=== PATIENT | male | born 1980 | race Caucasian/White ===

== ENCOUNTER 2018-04-17 10:39 | Observation (INO) | payer BC, OTHER ==
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
--- OUTSIDE RECORDS SUMMARY | 2018-04-17 10:42 | XMS REPORT | Continuity of Care Document ---
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/30/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 [facility] Oppositional Resolved Problem 06/30/2016 defiant behavior [facility] 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/30/2016 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[facility] disorder UTI (<span Resolved Problem 06/30/2016 ID="[id number]" [facility] >Confirmed</span >) Autism Active Problem 06/30/2016 [facility] Diverticula, Active Problem 06/30/2016 bladder [facility] LOW BACK PAIN Active [facility] Medications Medication Details Route Status Patient Ordering Order Source Instructions Provider Date Meperidine 12.5 mg, Route: Inactive IVP, Q30Min, 2015 [facility] Dosing Weight 105.568, kg, PRN Other -See Comment, For shivering, Start date: 06/27/16 10:12:00 CDT, Duration: 2 doses or times, Stop date: Limited # of times Ondansetron 4 mg, Route: Inactive 06/[facility] IVP, ONCE, 2015 [facility] Dosing Weight 105.568, kg, PRN Nausea & Vomiting, Start date: 06/27/16 10:12:00 CDT Flumazenil 0.2 mg, Route: Inactive [facility] IVP, PRN, Dosing 2015 [facility] Weight 105.568, kg, PRN Benzodiazepine Reversal, Initial dose, Start date: 06/27/16 10:12:00 CDT, Duration: 30 day, Stop date: 07/27/16 10:11:00 CDT Fentanyl 50 microgram, Inactive Route: IVP, 2015 [facility] Q5Min, Dosing Weight 105.568, kg, PRN Pain Score 7-10, Start date: 06/27/16 10:12:00 CDT, Duration: 2 doses or times, Stop date: Limited # of times Naloxone 0.4 mg, Route: Inactive IVP, Q2MIN, 2015 [facility] Dosing Weight 105.568, kg, PRN Narcotic Reversal, Start date: 06/27/16 10:12:00 CDT, Duration: 8 doses or times, Stop date: Limited # of times Hydromorphone 0.5 mg, Route: Inactive IVP, Q5Min, 2015 [facility] Dosing Weight 105.568, kg, PRN Pain Score 7-10, Start date: 06/27/16 10:12:00 CDT, Duration: 4 doses or times, Stop date: Limited # of times Oxycodone 10 mg, Route: Inactive PO, Drug form: 2015 [facility] TAB, Q4H, Dosing Weight 105.568, kg, PRN Pain Score 7-10, Start date: 06/27/16 10:12:00 CDT, Duration: 30 day, Stop date: 07/27/16 10:11:00 CDT Acetaminophen 1,000 mg, Route: Inactive PO, Drug form: 2015 [facility] TAB, ONCE, Dosing Weight 105.568, kg, PRN Pain Score 1-3, Start date: 06/27/16 10:12:00 CDT, Duration: 1 doses or times, Stop date: Limited # of times Cranberry oral 0 Refill(s) Active tablet 2015 [facility] Clonidine 0.2 mg=1 tab, Active Hydrochloride PO, BID, 0 2015 [facility] 0.2 MG Oral Refill(s) Tablet Caltrate 600 + 1 tab, PO, BID, Active D 0 Refill(s) 2015 [facility] risperiDONE 2 2 mg=1 tab, PO, Active mg oral tablet BID, 0 Refill(s) 2015 [facility] benztropine 1 1 mg=1 tab, PO, Active mg oral tablet BID, 0 Refill(s) 2015 [facility] tamsulosin 0.4 0.4 mg=1 cap, Active mg oral capsule PO, Daily, 0 2015 [facility] Refill(s) Divalproex 500 mg=1 tab, Active Sodium 500 MG PO, TID, 0 2015 [facility] Enteric Coated Refill(s) Tablet [Depakote] baclofen 10 mg 10 mg=1 tab, PO, Active oral tablet TID, 0 Refill(s) 2015 [facility] clindamycin 150 150 mg=1 cap, Active mg oral capsule PO, Q6H, 0 2015 [facility] Refill(s) Pyridium 100 mg 100 mg=1 tab, Active oral tablet PO, TID, 2014 [facility] Dysuria, # 6 tab, 0 Refill(s) Ciprofloxacin 500 mg=1 tab, Active 500 MG Oral PO, Q12H, # 14 2014 [facility] Tablet [Cipro] tab, 0 Refill(s) Cipro 500 mg, Route: Inactive PO, ONCE, Dosing 2014 [facility] Weight 79.091, kg, Priority: STAT, Start date: 11/11/14 19:52:00, Stop date: 11/11/14 19:52:00 Allergies, Adverse Reactions, Alerts Substance Category Reaction Severity Reaction Status Date Comments Source type Reported NKDA Assertion Drug Active allergy [facility] codeine Assertion Drug Active allergy [facility] Immunizations Immunization Date Site Status Last Comments Source Given Updated tetanus-diphther Right completed Jimmy [facility] ia toxoids 2 Deltoid Results Order Results Value Reference Date Interpretation Comments Source Name Range Spine Spine lumbar Patient Name: OTTO VIGIL 06/27 - lumbar wo wo contrast /2015 - [facility] contrast MRI : 1980; Age: 35 years y/o Male MRI MR: [id number] Read by: Flako Meredith MD Dictated Date/time: 06/27/16 10:55 Electronically Signed by: Flako Meredith MD 06/27/16 11:12 FINAL REPORT Study: Spine lumbar wo contrast MRI 06/27/2016 9:15 AM CDT Ordering Physician: Loy Tran MD Clinical Indication: M54.5 LOW BACK PAIN; UNDER ANESTHESIA Comparison: None TECHNIQUE: Multiplanar T1, T2, STIR weighted noncontrast MRI of the lumbar spine is performed on the 1.5 Jessica magnet. FINDINGS: ALIGNMENT AND GENERAL ASSESSMENT: There is normal alignment of the lumbar spine. The bone marrow is normal for the patient's age. There is no acute compression fracture. The anterior and posterior paraspinal soft tissues are normal. The conus medullaris ends at the T12- L1 level. For the sake of nomenclature, five lumbar vertebrae are assumed for the purpose of this dictation. T12-L1: No acute disc herniation, significant spinal or foraminal stenosis. Mild facet arthrosis. L1-L2: No acute disc herniation, significant spinal or foraminal stenosis. Mild facet arthrosis. L2-L3: Mild diffuse disc bulge with superimposed prominent right foraminal disc protrusion encroaching on the neural foramen. No significant spinal stenosis. Mild to moderate facet arthrosis. Please correlate with neurologic symptoms. L3-L4: Prominent right foraminal disc protrusion is present moderately encroaching on the neural foramen. No significant spinal stenosis detected. Moderate facet arthrosis. Please correlate with neurologic symptoms. L4-L5: Mild diffuse disc bulge and moderate facet arthrosis results in mild spinal stenosis. No significant foraminal stenosis is detected. Please correlate with neurologic symptoms. L5-S1: No acute disc herniation or significant spinal stenosis. Moderate left foraminal stenosis from asymmetric lateral disc bulge and marked facet arthrosis.. Please correlate with neurologic symptoms. IMPRESSION: 1. Multilevel degenerative disc disease and facet arthrosis, most noticeable at L2-L3, L3-L4, L4-L5 and L5/S1 as detailed above. Please correlate with neurologic symptoms. 2. No acute compression fracture or pathologic subluxation detected. SL: [id number] URINE AND UA 1.0 EU/dL 0.1 - 1.0 11/12 [facility] Urobilinogen URINE AND UA Nitrite Positive Negative 11/12 [facility] *ABN* (11/11/14 7:35 PM) URINE AND UA Leuk Est Moderate Negative 11/12 [facility] *ABN* (11/11/14 7:35 PM) URINE AND UA pH 6.0 5.0 - 8.0 11/12 [facility] URINE AND UA Protein Trace Negative 11/12 [facility] *ABN* (11/11/14 7:35 PM) URINE AND UA Glucose Negative Negative 11/12 [facility] (11/11/14 7:35 PM) URINE AND UA Spec Grav 1.025 <=1.030 11/12 [facility] URINE AND UA Ketones Negative Negative 11/12 [facility] *NA* (11/11/14 7:35 PM) URINE AND UA Bili Negative Negative 11/12 [facility] *NA* (11/11/14 7:35 PM) URINE AND UA Blood Trace Negative 11/12 [facility] *ABN* (11/11/14 7:35 PM) URINE AND UA Color Yellow Yellow 11/12 [facility] *NA* (11/11/14 7:35 PM) URINE AND UA Turbidity Slight Cloudy Clear 11/12 (11/11/14 7:35 PM) URINE AND UA Bacteria Moderate None Seen 11/12 [facility] /HPF /HPF [facility] URINE AND UA WBC 51-100 None Seen 11/12 STOOL /HPF /HPF /2014 [facility] URINE AND UA RBC 3-5 /HPF 0 - 2 11/12 [facility] URINE AND Micro? Performed 11/12 [facility] (11/11/14 7:35 PM) URINE AND UA Sq Epi Few /LPF Few /LPF 11/12 [facility] Vital Signs Vital Sign Value Date Comments Source Respitory Rate 12 06/27/2016 [facility] Systolic (mm Hg) 140 06/27/2016 [facility] Diastolic (mm Hg) 89 06/27/2016 [facility] Respitory Rate 13 06/27/2016 [facility] Systolic (mm Hg) 151 06/27/2016 [facility] Diastolic (mm Hg) 84 06/27/2016 [facility] Systolic (mm Hg) 144 06/27/2016 [facility] Diastolic (mm Hg) 99 06/27/2016 [facility] Respitory Rate 14 06/27/2016 [facility] Heart Rate 61 06/27/2016 [facility] Temperature Oral (F) 98.1 F 06/27/2016 [facility] Height 180.34 cm 06/27/2016 [facility] BMI Calculated 32.46 06/27/2016 [facility] Weight 105.568 06/27/2016 [facility] Systolic (mm Hg) 131 11/12/2014 [facility] Respitory Rate 16 11/12/2014 [facility] Temperature Oral (F) 98.9 F 11/12/2014 [facility] Diastolic (mm Hg) 81 11/12/2014 [facility] Heart Rate 81 11/12/2014 [facility] Temperature Oral (F) 98.4 F 11/12/2014 [facility] Weight 79.091 11/12/2014 [facility] BMI Calculated 24.32 11/12/2014 [facility] Heart Rate 82 11/12/2014 [facility] Respitory Rate 18 11/12/2014 [facility] Diastolic (mm Hg) 83 11/12/2014 [facility] Systolic (mm Hg) 134 11/12/2014 [facility] Height 180.34 cm 11/12/2014 [facility] Respitory Rate 18 11/12/2014 [facility] Heart Rate 84 11/12/2014 [facility] Diastolic (mm Hg) 83 11/12/2014 [facility] Temperature Oral (F) 97.8 F 11/12/2014 [facility] Systolic (mm Hg) 134 11/12/2014 [facility] BMI Calculated 24.32 11/12/2014 [facility] Weight 79.091 11/12/2014 [facility] Height 180.34 cm 11/12/2014 [facility] Encounters Location Location Encounter Encounter Reason Attending ADM DC Status Source Details Type Number For Provider Date Date Visit [facility] [id number] Walod Romano 11/12 11/12 [facility] Emergency /[address] [facility] [id number] Loy 06/27 [facility] Procedures Procedure Code Date Perfomer Comments Source Operation [id number] [facility]
--- OUTSIDE RECORDS SUMMARY | 2018-04-17 10:42 | XMS REPORT | Summary of Care ---
:1980 Author Encounter ILAN Alexandre(FREDY) [id number] Date(s): 11/11/14 - 11/11/14 [facility] [address] Discharge Diagnosis: Urinary tract infection Discharge Disposition: Home Physician Attending: Waldo Romano MD Reason for Visit UNINARY PROBLEMS Vital Signs Most recent to oldest [Reference 1 2 3 Range]: Height 180.34 cm 180.34 cm (11/11/14 6:42 PM) (11/11/14 6:37 PM) Temperature Oral [96.4-99.1 DegF] 98.9 DegF 98.4 DegF 97.8 DegF (11/11/14 8:00 PM) (11/11/14 6:42 PM) (11/11/14 6:37 PM) Systolic Blood Pressure [90-140 131 mmHg 134 mmHg 134 mmHg mmHg] (11/11/14 8:00 PM) (11/11/14 6:42 PM) (11/11/14 6:37 PM) Diastolic Blood Pressure [60-90 81 mmHg 83 mmHg 83 mmHg mmHg] (11/11/14 8:00 PM) (11/11/14 6:42 PM) (11/11/14 6:37 PM) Respiratory Rate [14-20 BRMIN] 16 BRMIN 18 BRMIN 18 BRMIN (11/11/14 8:00 PM) (11/11/14 6:42 PM) (11/11/14 6:37 PM) Peripheral Pulse Rate [60-100 bpm] 81 bpm 82 bpm 84 bpm (11/11/14 8:00 PM) (11/11/14 6:42 PM) (11/11/14 6:37 PM) Weight 79.091 kg 79.091 kg (11/11/14 6:42 PM) (11/11/14 6:37 PM) Body Mass Index 24.32 m2 24.32 m2 (11/11/14 6:42 PM) (11/11/14 6:37 PM) Problem List Condition Effective Dates Status Health Status Informant ADHD (attention deficit Resolved hyperactivity disorder)(Confirmed) Constipation(Confirmed) Resolved Explosive personality Resolved disorder(Confirmed) Mental retardation(Confirmed) Resolved Oppositional defiant Resolved behavior(Confirmed) Pervasive 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Resolved disorder(Confirmed) UTI (urinary tract Resolved infection)(Confirmed) Allergies, Adverse Reactions, Alerts Substance Reaction Severity Status NKDA Active Medications Cipro 500 mg, Route: PO, ONCE, Dosing Weight 79.091, kg, Priority: STAT, Start date: 11/11/14 19:52:00, Stop date: 11/11/14 19:52:00 Start Date: 11/11/14 Stop Date: 11/11/14 Status: CompletedCipro 500 mg oral tablet 500 mg=1 tab, PO, Q12H, # 14 tab, 0 Refill(s) Start Date: 11/11/14 Stop Date: 11/18/14 Status: OrderedPyridium 100 mg oral tablet 100 mg=1 tab, PO, TID, Dysuria, # 6 tab, 0 Refill(s) Start Date: 11/11/14 Status: Ordered Results URINE AND STOOL Most recent to oldest [Reference Range]: 1 UA Turbidity [Clear] Slight Cloudy (11/11/14 7:35 PM) UA Color [Yellow] Yellow *NA* (11/11/14 7:35 PM) UA pH [5.0-8.0] 6.0 (11/11/14 7:35 PM) UA Spec Grav [<=1.030] 1.025 (11/11/14 7:35 PM) UA Glucose [Negative] Negative (11/11/14 7:35 PM) UA Blood [Negative] Trace *ABN* (11/11/14 7:35 PM) UA Ketones [Negative] Negative *NA* (11/11/14 7:35 PM) UA Protein [Negative] Trace *ABN* (11/11/14 7:35 PM) UA Urobilinogen [0.1-1.0 EU/dL] 1.0 EU/dL (11/11/14 7:35 PM) UA Bili [Negative] Negative *NA* (11/11/14 7:35 PM) UA Leuk Est [Negative] Moderate *ABN* (11/11/14 7:35 PM) UA Nitrite [Negative] Positive *ABN* (11/11/14 7:35 PM) UA WBC [None Seen /HPF] 51-100 /HPF *ABN* (11/11/14 7:35 PM) UA RBC [0-2 /HPF] 3-5 /HPF *ABN* (11/11/14 7:35 PM) UA Bacteria [None Seen /HPF] Moderate /HPF (11/11/14 7:35 PM) UA Sq Epi [Few /LPF] Few /LPF (11/11/14 7:35 PM) Micro? Performed (11/11/14 7:35 PM) Medications Administered During Your Visit No data available for this section Immunizations Vaccine Date Refusal Reason tetanus-diphtheria toxoids 05/12/12 Social History Social History Type Response Alcohol Use: Never Smoking Status Never smoker, Ready to change: No, Concerns about tobacco use in household: No, Exposure to Tobacco Smoke None, Cigarette Smoking Last 365 Days No, Reg Smoking Cessation Counseling No
--- OUTSIDE RECORDS SUMMARY | 2018-04-17 10:42 | XMS REPORT | Summary of Care ---
:1980 Author Organization [facility] Address [address] [place], [place] [address]- Encounter HQ Steffany_cj(FIN) [id number] Date(s): 06/27/16 - 06/27/16 [facility] [place] [facility] [address] [place] [address]- [phone] Discharge Disposition: Home or Self Care Attending Physician: Loy Tran MD Referring Physician: Loy Tran MD Vital Signs Most recent to oldest 1 2 3 [Reference Range]: Height 180.34 cm (06/27/16 8:37 AM) Temperature Oral [96.4-99.1 98.1 DegF DegF] (06/27/16 8:38 AM) Blood Pressure [90-140/60-90 140/89 mmHg 151/84 mmHg 144/99 mmHg mmHg] (06/27/16 11:00 AM) *HI* *HI* (06/27/16 10:45 AM) (06/27/16 10:30 AM) Respiratory Rate [14-20 12 BRMIN 13 BRMIN 14 BRMIN BRMIN] *LOW* *LOW* (06/27/16 10:30 AM) (06/27/16 11:00 AM) (06/27/16 10:45 AM) Peripheral Pulse Rate 61 bpm [60-100 bpm] (06/27/16 8:38 AM) Weight 105.568 kg (06/27/16 8:37 AM) Body Mass Index 32.46 m2 (06/27/16 8:37 AM) Problem List Condition Effective Dates Status Health Status Informant ADHD (attention deficit Resolved hyperactivity disorder)(Confirmed) Autism(Confirmed) Active Constipation(Confirmed) Resolved Diverticula, bladder(Confirmed) Active Explosive personality Resolved disorder(Confirmed) Mental retardation(Confirmed) Resolved Oppositional defiant Resolved behavior(Confirmed) Pervasive 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Resolved disorder(Confirmed) UTI (urinary tract Resolved infection)(Confirmed) Allergies, Adverse Reactions, Alerts Substance Reaction Severity Status codeine Active Medications ANES acetaminophen 1,000 mg, Route: PO, Drug form: TAB, ONCE, Dosing Weight 105.568, kg, PRN Pain Score 1-3, Start date: 06/27/16 10:12:00 CDT, Duration: 1 doses or times, Stop date: Limited # of times Start Date: 06/27/16 Stop Date: 06/27/16 Status: DiscontinuedANES fentaNYL 50 microgram, Route: IVP, Q5Min, Dosing Weight 105.568, kg, PRN Pain Score 7-10 , Start date: 06/27/16 10:12:00 CDT, Duration: 2 doses or times, Stop date: Limited # of times Start Date: 06/27/16 Stop Date: 06/27/16 Status: DiscontinuedANES flumazenil 0.2 mg, Route: IVP, PRN, Dosing Weight 105.568, kg, PRN Benzodiazepine Reversal , Initial dose, Startdate: 06/27/16 10:12:00 CDT, Duration: 30 day, Stop date: 07/27/16 10:11:00 CDT Start Date: 06/27/16 Stop Date: 06/27/16 Status: DiscontinuedANES HYDROmorphone 0.5 mg, Route: IVP, Q5Min, Dosing Weight 105.568, kg, PRN Pain Score 7-10, Start date: 06/27/16 10:12:00 CDT, Duration: 4 doses or times, Stop date: Limited # of times Start Date: 06/27/16 Stop Date: 06/27/16 Status: DiscontinuedANES meperidine 12.5 mg, Route: IVP, Q30Min, Dosing Weight 105.568, kg, PRN Other -See Comment, For shivering, Startdate: 06/27/16 10:12:00 CDT, Duration: 2 doses or times, Stop date: Limited # of times Start Date: 06/27/16 Stop Date: 06/27/16 Status: DiscontinuedANES naloxone 0.4 mg, Route: IVP, Q2MIN, Dosing Weight 105.568, kg, PRN Narcotic Reversal, Start date: 06/27/16 10:12:00 CDT, Duration: 8 doses or times, Stop date: Limited # of times Start Date: 06/27/16 Stop Date: 06/27/16 Status: DiscontinuedANES ondansetron 4 mg, Route: IVP, ONCE, Dosing Weight 105.568, kg, PRN Nausea & Vomiting, Start date: 06/27/16 10:12:00 CDT Start Date: 06/27/16 Stop Date: 06/27/16 Status: DiscontinuedANES oxyCODONE 10 mg, Route: PO, Drug form: TAB, Q4H, Dosing Weight 105.568, kg, PRN Pain Score 7-10, Start date: 06/27/16 10:12:00 CDT, Duration: 30 day, Stop date: 10:11:00 CDT Start Date: 06/27/16 Stop Date: 06/27/16 Status: Discontinuedbaclofen 10 mg oral tablet 10 mg=1 tab, PO, TID, 0 Refill(s) Start Date: 06/27/16 Status: Orderedbenztropine 1 mg oral tablet 1 mg=1 tab, PO, BID, 0 Refill(s) Start Date: 06/27/16 Status: OrderedCaltrate 600 + D 1 tab, PO, BID, 0 Refill(s) Start Date: 06/27/16 Status: Orderedclindamycin 150 mg oral capsule 150 mg=1 cap, PO, Q6H, 0 Refill(s) Start Date: 06/27/16 Status: OrderedcloNIDine 0.2 mg oral tablet 0.2 mg=1 tab, PO, BID, 0 Refill(s) Start Date: 06/27/16 Status: OrderedCranberry oral tablet 0 Refill(s) Start Date: 06/27/16 Status: OrderedDepakote 500 mg oral enteric coated tablet 500 mg=1 tab, PO, TID, 0 Refill(s) Start Date: 06/27/16 Status: OrderedrisperiDONE 2 mg oral tablet 2 mg=1 tab, PO, BID, 0 Refill(s) Start Date: 06/27/16 Status: Orderedtamsulosin 0.4 mg oral capsule 0.4 mg=1 cap, PO, Daily, 0 Refill(s) Start Date: 06/27/16 Status: Ordered Results No data available for this section Immunizations Given and Recorded Vaccine Date Status Refusal Reason tetanus-diphtheria toxoids 05/12/12 Given Procedures Procedure Date Related Diagnosis Body Site Operation Social History Social History Type Response Substance Abuse Use: None. Alcohol Never Smoking Status Never smoker; Exposure to Tobacco Smoke None; Cigarette Smoking Last 365 Days No; Reg Smoking Cessation Counseling No Assessment and Plan No data available for this section
[2018-04-17] MEDS ORDERED: NA CHLORIDE 0.9% 1,000 ML ONE (11:17)
[2018-04-17 11:19] LABS: Absolute Lymphocytes (CBC) 1.2 K/uL (0.7-4.9); Absolute Monocytes 1.2 K/uL (0.1-1.3); Basophils % 0.5 % (0-1.3); Eosinophils % 1.4 % (0-4.4); Hematocrit 40.2 % (39.6-49.0); Lymphocytes % 16.3 % (15.3-44.8); MCH 31.4 pg (27.0-35.0); MPV 7.7 fL (7.6-11.3); Monocytes % 15.9 % (3.3-12.3); RBC Red Blood Cell Count 4.47 M/uL (4.33-5.43)
[2018-04-17 11:26] LABS: Protime INR 0.97
--- NOTE | 2018-04-17 12:18 | EDPHYS ---
Physician Documentation [facility] Name: Justyn Escobar Age: 37 yrs Sex: Male : 1980 Arrival Date: 04/17/2018 Time: 10:42 Bed 7 Private MD: None, None ED Physician Mac Gonzalez HPI: 04/17 12:13 This 37 yrs old Male presents to ER via Ambulatory with complaints of minoo Accidental Overdose. 12:13 Context: accidental. Associated signs and symptoms: Pertinent positives: dizziness. minoo Severity of symptoms: At their worst the symptoms were mild. The patient has experienced similar episodes in the past, several times. Historical: - Allergies: 10:47 Codeine; sv - Home Meds: 10:47 Ativan 1 mg Oral tab 1 tab 2 times per day [Active]; Depakote ER 500 mg Oral Tb24 2 sv tabs twice a day [Active]; clonidine HCl 0.2 mg Oral tab 1 tab 2 times per day [Active]; Invega Sustenna 234 mg/1.5 mL intramuscular syrg 1.5 mL once moly [Active]; Flomax 0.4 mg Oral cp24 1 cap once daily [Active]; baclofen 10 mg Oral tab 1 tab twice a day [Active]; cranberry Oral daily [Active]; Ellura oral oral [Active]; Align oral oral [Active]; Vitamin B-12 Oral [Active]; Vitamin C Oral [Active]; - PMHx: 10:47 ADD/ADHD; autistic; sv - PSHx: 10:47 right testicle removed; sv - Immunization history:: Flu vaccine is not up to date. - Social history:: Smoking status: Patient/guardian denies using tobacco. - Family history:: not pertinent. - Ebola Screening: : Patient denies travel to an Ebola-affected area in the 21 days before illness onset. ROS: 12:13 Constitutional: Negative for fever, chills, and weight loss, Eyes: Negative for injury, minoo pain, redness, and discharge, ENT: Negative for injury, pain, and discharge, Neck: Negative for injury, pain, and swelling, Cardiovascular: Negative for chest pain, palpitations, and edema, Respiratory: Negative for shortness of breath, cough, wheezing, and pleuritic chest pain, Abdomen/GI: Negative for abdominal pain, nausea, vomiting, diarrhea, and constipation, Back: Negative for injury and pain, : Negative for injury, bleeding, discharge, and swelling, MS/Extremity: Negative for injury and deformity, Skin: Negative for injury, rash, and discoloration, Psych: Negative for depression, anxiety, suicide ideation, homicidal ideation, and hallucinations, Allergy/Immunology: Negative for hives, rash, and allergies, Endocrine: Negative for neck swelling, polydipsia, polyuria, polyphagia, and marked weight changes, Hematologic/Lymphatic: Negative for swollen nodes, abnormal bleeding, and unusual bruising. 12:13 Neuro: Positive for dizziness. Exam: 12:13 Constitutional: This is a well developed, well nourished patient who is awake, alert, minoo and in no acute distress. Head/Face: Normocephalic, atraumatic. Eyes: Pupils equal round and reactive to light, extra-ocular motions intact. Lids and lashes normal. Conjunctiva and sclera are non-icteric and not injected. Cornea within normal limits. Periorbital areas with no swelling, redness, or edema. ENT: Nares patent. No nasal discharge, no septal abnormalities noted. Tympanic membranes are normal and external auditory canals are clear. Oropharynx with no redness, swelling, or masses, exudates, or evidence of obstruction, uvula midline. Mucous membranes moist. Neck: Trachea midline, no thyromegaly or masses palpated, and no cervical lymphadenopathy. Supple, full range of motion without nuchal rigidity, or vertebral point tenderness. No Meningismus. Chest/axilla: Normal chest wall appearance and motion. Nontender with no deformity. No lesions are appreciated. Cardiovascular: Regular rate and rhythm with a normal S1 and S2. No gallops, murmurs, or rubs. Normal PMI, no JVD. No pulse deficits. Respiratory: Lungs have equal breath sounds bilaterally, clear to auscultation and percussion. No rales, rhonchi or wheezes noted. No increased work of breathing, no retractions or nasal flaring. Abdomen/GI: Soft, non-tender, with normal bowel sounds. No distension or tympany. No guarding or rebound. No evidence of tenderness throughout. Back: No spinal tenderness. No costovertebral tenderness. Full range of motion. Male : Normal genitalia with no discharge or lesions. Skin: Warm, dry with normal turgor. Normal color with no rashes, no lesions, and no evidence of cellulitis. MS/ Extremity: Pulses equal, no cyanosis. Neurovascular intact. Full, normal range of motion. Neuro: Awake and alert, GCS 15, oriented to person, place, time, and situation. Cranial nerves II-XII grossly intact. Motor strength 5/5 in all extremities. Sensory grossly intact. Cerebellar exam normal. Normal gait. Psych: Awake, alert, with orientation to person, place and time. Behavior, mood, and affect are within normal limits. Vital Signs: 10:47 BP 109 / 63; Pulse 88; Resp 20; Temp 97.9; Pulse Ox 96% ; Weight 99.79 kg; Height 5 ft. sv 9 in. (175.26 cm); Pain 0/10; 11:25 BP 109 / 74; Pulse 70; Resp 18; Pulse Ox 97% on R/A; aj1 11:48 BP 116 / 79; Pulse 72; Resp 20; Pulse Ox 95% on R/A; aj1 12:50 BP 114 / 75; Pulse 58; Resp 18; Pulse Ox 99% on R/A; aj1 13:34 BP 113 / 74; Pulse 65; Resp 18; Pulse Ox 97% ; aj1 14:35 BP 117 / 74; Pulse 79; Resp 18; Pulse Ox 99% ; aj1 10:47 Body Mass Index 32.49 (99.79 kg, 175.26 cm) sv MDM: 10:51 Patient medically screened. 04/17 10:56 Order name: Basic Metabolic Panel 04/17 10:56 Order name: CBC with Diff; Complete Time: 13:04/17 10:56 Order name: Ckmb 04/17 10:56 Order name: CPK; Complete Time: 13:26 04/17 10:56 Order name: LFT's; Complete Time: 13:26 04/17 10:56 Order name: Magnesium; Complete Time: 13:26 04/17 10:56 Order name: NT PRO-BNP; Complete Time: 13:26 04/17 10:56 Order name: PT-INR; Complete Time: 12:12 04/17 10:56 Order name: Ptt, Activated; Complete Time: 12:12 04/17 10:56 Order name: Troponin (emerg Dept Use Only); Complete Time: 12:12 [facility] 04/17 10:57 Order name: Basic Metabolic Panel; Complete Time: 13:26 [facility] 04/17 10:57 Order name: CKMB Creatine Kinase MB; Complete Time: 13:26 [facility] 04/17 10:57 Order name: Acetaminophen; Complete Time: 13:26 04/17 10:57 Order name: ETOH Level; Complete Time: 13:26 04/17 10:56 Order name: XRAY Chest (1 view); Complete Time: 13:26 [facility] 04/17 10:57 Order name: Salicylate; Complete Time: 12:12 04/17 10:57 Order name: Urine Drug Screen 04/17 11:21 Order name: CBC Smear Scan; Complete Time: 13:26 [facility] 04/17 12:13 Order name: Depakote [facility] 04/17 13:31 Order name: TSH [facility] 04/17 13:41 Order name: Urine Dipstick--Ancillary (enter results) 04/17 14:22 Order name: Urine Culture [facility] 04/17 14:22 Order name: Urine Culture 04/17 14:24 Order name: Urinalysis [facility] 04/17 14:28 Order name: Valproic Acid (Depakene) Level [facility] 04/17 14:28 Order name: Thyroid Stimulating Hormone [facility] 04/17 14:34 Order name: Urine Microscopic Only [facility] 04/17 10:56 Order name: EKG; Complete Time: 10:57 [facility] 04/17 10:56 Order name: Cardiac monitoring; Complete Time: 11:08 [facility] 04/17 10:56 Order name: EKG - Nurse/Tech; Complete Time: 11:08 [facility] 04/17 10:56 Order name: IV Saline Lock; Complete Time: 11:11 [facility] 04/17 10:56 Order name: Labs collected and sent; Complete Time: 11:11 [facility] 04/17 10:56 Order name: O2 Per Protocol; Complete Time: 11: [facility] 04/17 10:56 Order name: O2 Sat Monitoring; Complete Time: 11:08 [facility] 04/17 10:56 Order name: Urine Dipstick-Ancillary (obtain specimen); Complete Time: 13:40 [facility] Administered Medications: 11:17 Drug: NS 0.9% 1000 ml Route: IV; Rate: 1 bolus; Site: right antecubital; aj1 14:41 Follow up: IV Status: Completed infusion; IV Intake: 1000ml aj1 14:32 Drug: Rocephin - (cefTRIAXone) 1 grams Route: IVPB; Infused Over: 30 mins; Site: right aj1 antecubital; 14:41 Follow up: IV Status: Completed infusion aj1 14:34 Drug: Tylenol 1000 mg Route: PO; aj1 14:41 Follow up: Response: No adverse reaction aj1 Disposition: 04/17/18 12:17 Hospitalization ordered by Javi Henderson for Observation. Preliminary diagnosis are Dizziness and giddiness - accidental drug/s ingestion, Autistic disorder, Attention-deficit hyperactivity disorder, unspecified type. - Bed requested for Telemetry/MedSurg (observation). - Status is Observation. ss - Condition is Fair. - Problem is new. - Symptoms have improved. UTI on Admission? No Signatures: Dispatcher [employer] EDMS Eugenia Thomas RN RN aj Anny Potter RN RN sv Anderson, Corey, MD MD cha Smirch, Shelby, RN RN ss Botello, Elizabeth eb Corrections: (The following items were deleted from the chart) 13:23 12:17 Hospitalization Ordered by Javi Henderson MD for Observation. Preliminary eb diagnosis is Dizziness and giddiness - accidental drug/s ingestion; Autistic disorder; Attention-deficit hyperactivity disorder, unspecified type. Bed requested for Telemetry/MedSurg (observation). Status is Observation. Condition is Fair. Problem is new. Symptoms have improved. UTI on Admission? No. minoo 15:10 13:23 04/17/2018 12:17 Hospitalization Ordered by Javi Henderson MD for Observation. ss Preliminary diagnosis is Dizziness and giddiness - accidental drug/s ingestion; Autistic disorder; Attention-deficit hyperactivity disorder, unspecified type. Bed requested for Telemetry/MedSurg (observation). Status is Observation. Condition is Fair. Problem is new. Symptoms have improved. UTI on Admission? No. eb
--- NOTE | 2018-04-17 12:18 | ER ---
Nurse's Notes [facility] Name: Justyn Escobar Age: 37 yrs Sex: Male : 1980 Arrival Date: 04/17/2018 Time: 10:42 Bed 7 Private MD: None, None Diagnosis: Dizziness and giddiness-accidental drug/s ingestion;Autistic disorder;Attention-deficit hyperactivity disorder, unspecified type Presentation: 04/17 10:42 Presenting complaint: Mother states: pt accidentally took his father's medications, pt sv has autism, about 30 minutes ago. Medications are: Losartin potassium, Exetimibe, Coreg, Memantine, Levothyroxine, Decadron, Lasix, Sinemet, Aspirin EC. Transition of care: patient was not received from another setting of care. Onset of symptoms was April 17, 2018 at 10:15. Care prior to arrival: None. 10:42 Method Of Arrival: Ambulatory sv 10:42 Acuity: ENRIQUE 2 sv 10:50 Note Pt now c/o dizziness. sv 12:50 Risk Assessment: Do you want to hurt yourself or someone else? Patient reports no aj1 desire to harm self or others. Initial Sepsis Screen: Does the patient meet any 2 criteria? No. Patient's initial sepsis screen is negative. Does the patient have a suspected source of infection? No. Patient's initial sepsis screen is negative. Historical: - Allergies: 10:47 Codeine; sv - Home Meds: 10:47 Ativan 1 mg Oral tab 1 tab 2 times per day [Active]; Depakote ER 500 mg Oral Tb24 2 sv tabs twice a day [Active]; clonidine HCl 0.2 mg Oral tab 1 tab 2 times per day [Active]; Invega Sustenna 234 mg/1.5 mL intramuscular syrg 1.5 mL once moly [Active]; Flomax 0.4 mg Oral cp24 1 cap once daily [Active]; baclofen 10 mg Oral tab 1 tab twice a day [Active]; cranberry Oral daily [Active]; Ellura oral oral [Active]; Align oral oral [Active]; Vitamin B-12 Oral [Active]; Vitamin C Oral [Active]; - PMHx: 10:47 ADD/ADHD; autistic; sv - PSHx: 10:47 right testicle removed; sv - Immunization history:: Flu vaccine is not up to date. - Social history:: Smoking status: Patient/guardian denies using tobacco. - Family history:: not pertinent. - Ebola Screening: : Patient denies travel to an Ebola-affected area in the 21 days before illness onset. Screenin:50 Abuse screen: Denies threats or abuse. Denies injuries from another. Nutritional aj1 screening: No deficits noted. Tuberculosis screening: No symptoms or risk factors identified. 14:38 Fall Risk No fall in past 12 months (0 pts). Secondary diagnosis (15 points) accidental aj1 ingestion. IV access (20 points). Ambulatory Aid- None/Bed Rest/Nurse Assist (0 pts). Mental Status- Overestimates/Forgets Limitations (15 pts.). Total Nixon Fall Scale indicates Low Risk Score (25-44 pts). Fall prevention measures have been instituted. Family Present and informed to notify staff if they need to leave bedside As available Patient and Family Educated on Fall Prevention Program and strategies. Assessment: 10:50 General: Appears in no apparent distress. comfortable, Behavior is calm, cooperative, aj1 appropriate for age. Pain: Denies pain. Neuro: Level of Consciousness is awake, alert, obeys commands, Oriented to person, place, time, situation, Patrol Mother are equal bilaterally Moves all extremities. Speech Patient's mother states that patient's speech sounds normal. Facial symmetry appears normal. Cardiovascular: Denies chest pain, shortness of breath, Heart tones S1 S2 present Patient's skin is warm and dry. Rhythm is regular. Respiratory: Airway is patent Respiratory effort is even, unlabored, Respiratory pattern is regular, symmetrical, Breath sounds are clear bilaterally. GI: No signs and/or symptoms were reported involving the gastrointestinal system. Patient currently denies nausea. : No signs and/or symptoms were reported regarding the genitourinary system. EENT: No signs and/or symptoms were reported regarding the EENT system. Derm: Skin is pink, warm \T\ dry. normal, Bruising that is dark purple, on right eye, nose and left eye Patient's mother states that he broke his nose a couple of weeks ago. Musculoskeletal: No signs and/or symptoms reported regarding the musculoskeletal system. Circulation, motion, and sensation intact. 11:00 Reassessment: Spoke with Mckenzie at the [place] poison control center. Recommended sv fluids, EKG, clinical research monitor for at least 12-24 hours, possibly admission, vasopressors if needed, supportive care, CMP in a couple of hours as well. Case # [id number]. 11:48 Reassessment: Patient appears in no apparent distress at this time. No changes from aj1 previously documented assessment. Patient and/or family updated on plan of care and expected duration. Pain level reassessed. Patient is alert, oriented x 3, equal unlabored respirations, skin warm/dry/pink. 12:49 Reassessment: Patient and/or family updated on plan of care and expected duration. Pain aj1 level reassessed. General: Appears in no apparent distress. comfortable, Behavior is calm, cooperative, appropriate for age. Pain: Denies pain. Neuro: Level of Consciousness is awake, alert, obeys commands. Neuro: Oriented to person, place, time, situation, Patrol Mother are equal bilaterally Moves all extremities. Facial symmetry appears normal. Cardiovascular: Patient's skin is warm and dry. Respiratory: Airway is patent Respiratory effort is even, unlabored, Respiratory pattern is regular, symmetrical. Derm: Skin is pink, warm \T\ dry. normal. Musculoskeletal: Circulation, motion, and sensation intact. 13:34 Reassessment: Patient appears in no apparent distress at this time. No changes from aj1 previously documented assessment. Patient and/or family updated on plan of care and expected duration. Pain level reassessed. Patient is alert, oriented x 3, equal unlabored respirations, skin warm/dry/pink. 13:42 Reassessment: Report given to CARLA Wells on 4th floor. aj1 14:35 Reassessment: Patient appears in no apparent distress at this time. No changes from aj1 previously documented assessment. Patient and/or family updated on plan of care and expected duration. Pain level reassessed. Patient is alert, oriented x 3, equal unlabored respirations, skin warm/dry/pink. Vital Signs: 10:47 BP 109 / 63; Pulse 88; Resp 20; Temp 97.9; Pulse Ox 96% ; Weight 99.79 kg; Height 5 ft. sv 9 in. (175.26 cm); Pain 0/10; 11:25 BP 109 / 74; Pulse 70; Resp 18; Pulse Ox 97% on R/A; aj1 11:48 BP 116 / 79; Pulse 72; Resp 20; Pulse Ox 95% on R/A; aj1 12:50 BP 114 / 75; Pulse 58; Resp 18; Pulse Ox 99% on R/A; aj1 13:34 BP 113 / 74; Pulse 65; Resp 18; Pulse Ox 97% ; aj1 14:35 BP 117 / 74; Pulse 79; Resp 18; Pulse Ox 99% ; aj1 10:47 Body Mass Index 32.49 (99.79 kg, 175.26 cm) sv ED Course: 10:42 Patient arrived in ED. sb2 10:43 None, None is Private Physician. sb2 10:45 Triage completed. sv 10:48 Arm band placed on right wrist. sv 10:50 Patient placed in an exam room, on a stretcher. sv 10:50 Patient has correct armband on for positive identification. Pt's mother at bedside. aj1 clinical research monitor on. Pulse ox on. NIBP on. 10:50 No provider procedures requiring assistance completed. aj1 10:51 Mac Gonzalez MD is Attending Physician. minoo 11:08 Eugenia Thomas RN is Primary Nurse. aj1 11:10 EKG done, by ED staff, reviewed by Mac Gonzalez MD. 3 11:14 Initial lab(s) drawn, by de, sent to lab. Inserted saline lock: 18 gauge in right dh3 antecubital area, using aseptic technique. Blood collected. 11:27 XRAY Chest (1 view) In Process Unspecified. EDMS 12:16 Javi Henderson MD is Hospitalizing Provider. minoo 14:35 Patient admitted, IV remains in place. aj1 Administered Medications: 11:17 Drug: NS 0.9% 1000 ml Route: IV; Rate: 1 bolus; Site: right antecubital; aj1 14:41 Follow up: IV Status: Completed infusion; IV Intake: 1000ml aj1 14:32 Drug: Rocephin - (cefTRIAXone) 1 grams Route: IVPB; Infused Over: 30 mins; Site: right aj1 antecubital; 14:41 Follow up: IV Status: Completed infusion aj1 14:34 Drug: Tylenol 1000 mg Route: PO; aj1 14:41 Follow up: Response: No adverse reaction aj1 Intake: 14:41 IV: 1000ml; Total: 1000ml. aj1 Outcome: 12:17 Decision to Hospitalize by Provider. minoo 15:10 Patient left the ED. ss Signatures: Dispatcher [employer] EDMS Eugenia Thomas RN RN aj1 Anny Potter RN Mac Osuna MD MD cha Smirch, Shelby, RN RN Haydee Wills 3 Eladia Pate2 Corrections: (The following items were deleted from the chart) 10:50 10:47 Pulse Ox 96%; Temp 97.9F; 99.79 kg; Height 5 ft. 9 in.; BMI: 32.4; Pain 0/10; sv sv 10:51 10:47 Pulse 88bpm; Resp 20bpm; Pulse Ox 96%; Temp 97.9F; 99.79 kg; Height 5 ft. 9 in.; sv BMI: 32.4; Pain 0/10; sv 11:06 10:42 Presenting complaint: Mother states: pt accidentally took his father's sv medications, pt has autism, about 30 minutes ago. Medications are: Losartin potassium, Exetimibe, Coreg, Memantine, Amitryptilline, Levothyroxine, Decadron, Lasix, Sinemet, Aspirin EC sv 11: 10:45 General: Appears in no apparent distress. comfortable, Behavior is calm, aj1 cooperative, appropriate for age, aj1 : 10:45 Pain: Denies pain. aj1 aj1 : 10:45 Neuro: Level of Consciousness is awake, alert, obeys commands, Oriented to aj1 person, place, time, situation, Patrol Mother are equal bilaterally Moves all extremities. Speech Patient's mother states that patient's speech sounds normal. Facial symmetry appears normal, aj1 : 10:45 Cardiovascular: Denies chest pain, shortness of breath, Heart tones S1 S2 present aj1 Patient's skin is warm and dry. Rhythm is regular aj1 : 10:45 Respiratory: Airway is patent Respiratory effort is even, unlabored, Respiratory aj1 pattern is regular, symmetrical, Breath sounds are clear bilaterally. aj1 10:45 GI: No signs and/or symptoms were reported involving the gastrointestinal system. aj1 Patient currently denies nausea, aj1 10:45 : No signs and/or symptoms were reported regarding the genitourinary system. aj1aj1 : 10:45 EENT: No signs and/or symptoms were reported regarding the EENT system. aj1 aj1 : 10:45 Derm: No signs and/or symptoms reported regarding the dermatologic system. Skin aj1 is pink, warm \T\ dry. normal, aj1 : 10:45 Musculoskeletal: No signs and/or symptoms reported regarding the musculoskeletal aj1 system. Circulation, motion, and sensation intact. aj1 12:16 10:50 Derm: No signs and/or symptoms reported regarding the dermatologic system. Skin aj1 is pink, warm \T\ dry. normal, aj1
--- NOTE | 2018-04-17 12:48 | RAD REPORT ---
EXAM DESCRIPTION: RAD - Chest Single View - 04/17/2018 11:27 am CLINICAL HISTORY: Cough and congestion COMPARISON: November 25 TECHNIQUE: AP portable chest image was obtained 1113 hours . FINDINGS: Lung volumes are low. No peripheral mass, consolidation or failure. Lung markings are danny lar to comparison. Heart and vasculature are normal. No measurable pleural effusion and no pneumothor ax. No gross bony abnormality seen. No acute aortic findings suspected. IMPRESSION: No acute cardiopulmonary process. No significant interval change.
[2018-04-17 12:54] LABS: ALT/SGPT 11 U/L (12-78); AST/SGOT 33 U/L (15-37); Alkaline Phosphatase 69 U/L (45-117); BUN Blood Urea Nitrogen 26 mg/dL (7-18); Bicarbonate 29 mmol/L (21-32); Bilirubin Direct 0.1 mg/dL (0-0.2); Bilirubin Total 0.3 mg/dL (0.2-1.0); CKMB Creatine Kinase MB 3.4 ng/mL (0.3-3.6); Creatine Phosphokinase 362 U/L (39-308); Glucose Level 108 mg/dL (74-106); Magnesium 1.8 mg/dL (1.8-2.4); NT PRO-BNP 280 pg/mL (<125); Potassium 3.8 mmol/L (3.5-5.1); Protein, Total 7.5 g/dL (6.4-8.2); Sodium Level 143 mmol/L (136-145)
[2018-04-17 12:55] LABS: Alcohol Serum/Plasma < 3 mg/dL (0-3)
[2018-04-17 13:02] LABS: Blood Morphology Comment NOT SEEN (NOT SEEN); Platelet Estimate ADEQ; Urine White Blood Cell Casts OK
[2018-04-17 14:04] LABS: Barbiturates NEGATIVE (NEGATIVE); Benzodiazepines NEGATIVE (NEGATIVE); Cocaine NEGATIVE (NEGATIVE); METHAMPHETAM NEGATIVE (NEGATIVE); Methadone NEGATIVE (NEGATIVE); Opiates NEGATIVE (NEGATIVE); Phencyclidine NEGATIVE (NEGATIVE); THC Cannibis NEGATIVE (NEGATIVE)
[2018-04-17 14:07] LABS: Urine Appearance CLOUDY; Urine Bilirubin NEGATIVE (NEG); Urine Blood NEGATIVE (NEG); Urine Color YELLOW; Urine Glucose NEGATIVE (NEG); Urine Protein NEGATIVE (NEG); Urine Urobilinogen 0.2 mg/dL (0.2-1.0)
[2018-04-17 14:24] LABS: Urine Microscopic Reflex ORDER UMIC
[2018-04-17 14:28] LABS: Thyroid Stimulating Hormone 1.37 uIU/mL (0.36-3.74)
[2018-04-17] MEDS ORDERED: CEFTRIAXONE/SWI 1gm 1 GM/10 ML SYR ONE ×2 (14:31)
[2018-04-17] MEDS ORDERED: ALBUTEROL 2.5 MG/3 ML NEB SOL NEB PRN (14:32)
[2018-04-17] MEDS ORDERED: ACETAMINOPHEN 500 MG TAB PO PRN (14:32)
[2018-04-17] MEDS ORDERED: ONDANSETRON 4 MG/2 ML VIAL IV PRN (14:32)
[2018-04-17 14:33] LABS: Urine Bacteria 20-50 /HPF (NONE SEEN); Urine Culture Reflex Order REFLEXED; Urine RBC <5 /HPF (NONE SEEN)
[2018-04-17] MEDS: NA CHLORIDE 0.9% 1,000 ML IV SCH ×2 (15:16→22:14)
[2018-04-17 15:43] VITALS: BMI 32.5
--- NOTE | 2018-04-17 17:36 | HP ---
Date of Admission: 04/17/2018 Reason For Admission: Medication error intake. History Of Present Illness: This is a 37-year-old gentleman with history of ADHD, mental retardation , presented to the emergency room due to accidental overdose of his father's medication according to the mother, who is the caregiver. Father who takes medication for Parkinson, hypertension, and diure tics, was with them in the same room, and she was arranging for the patient's and his father's medica tions, and the patient took his medication and his father's medication accidentally, and he was sent to emergency room. She reported episodes of mild dizziness for the patient. There was no chest pain . No nausea, no vomiting. No abdominal pain. Dr. Gonzalez contacted [facility] and they advised him to watch the patient over 24 hours. Currently, patient is fully alert. His mother at the bedside. He has no complaints. No chest pain. No abdominal pain. No fever or ch ills. No dizziness. Review of Systems: Otherwise, negative. Past Medical History: Significant for ADHD, anger episode, mild mental retardation, autism. Past Surgical History: Significant for right testicle removed. Social History: The patient is single. He lives in a intermediate. Does not drink, smoke, or use any drugs. He does not work. Family History: Father alive, has Parkinson. Mother alive and healthy. Medication: Home medication according to emergency room list, vitamin C, vitamin B12, Ellura oral li ne supplement, cranberry supplement, baclofen 10 mg twice a day. Ativan 1 mg, 1 tablet twice a day, Depakote 500 mg ER orally twice a day, clonidine 0.2 mg orally twice a day, Invega 234 mg intramuscul ar once, Flomax 0.4 mg orally once a day. Review of Systems: Denies any fever, chills, night sweats, dizziness, or headache currently. The patient had episode of dizziness earlier, but not any more. No chest pain. No abdominal pain. No fever or chills. No ch quiana in bowel movement. Good appetite. No nausea, vomiting, abdominal pain, change in bowel movemen t. No dysuria, frequency, urgency, hematuria. There is no history of anxiety, seizure, or stroke. Physical Examination: Vital Signs: Blood pressure is 116/79, respiratory rate 20, pulse 72, temperature 97.9, saturating 9 6% on room air. General: He is fully alert and oriented times? Does not look in any distress. HEENT: Atraumatic, normocephalic. PERRLA. Oral mucosa is moist. Neck: Supple. No JVP. No carotid bruits. Chest: Clear to auscultation. Good air entry. Heart: Regular rate and rhythm. S1, S2 normal. No gallop or murmur. Abdomen: Soft, nontender. No masses. No hepatosplenomegaly. Positive bowel sounds. Extremities: No clubbing, cyanosis, or edema. No calf tenderness. Neurologic: He is able to follow commands. Laboratory Data: In the emergency room showed CBC within normal. PT/INR was normal. CMP was normal except for BUN 26, glucose 108, creatine kinase of 362, troponin normal. BNP of 280, TSH 1.3. Chest x-ray was normal. Assessment And Plan: This is a 37-year-old gentleman with history of ADHD, autism, accidentally miriam sted his father's drugs. 1.Incidentally occurred error in taking medication. The patient took his father's Parkinson medicat ion, diuretics, and high blood pressure medication. He will be observed today and discharged tomorro w if he is hemodynamically stable. 2.History of attention deficit hyperactivity disorder and autism. Resume his home medication after referred by the nurse through the pharmacist. 3.This patient need sitting with fall precaution. 4.Continue IV hydration and repeat labs in the morning. KARISHMA Voice ID: [id number]
[2018-04-17 18:55] LABS: Absolute Lymphocytes (CBC) 1.4 K/uL (0.7-4.9); Absolute Monocytes 0.6 K/uL (0.1-1.3); Absolute Neutrophil 6.8 K/uL (1.8-8.0); Basophils % 0.2 % (0-1.3); Eosinophils % 0.7 % (0-4.4); Hematocrit 39.5 % (39.6-49.0); Lymphocytes % 15.8 % (15.3-44.8); MCH 31.2 pg (27.0-35.0); MCV 90.8 fL (80-100); MPV 8.2 fL (7.6-11.3); Monocytes % 6.5 % (3.3-12.3); RBC Red Blood Cell Count 4.36 M/uL (4.33-5.43)
[2018-04-17 19:02] LABS: Albumin 2.9 g/dL (3.4-5.0); Bilirubin Total 0.2 mg/dL (0.2-1.0); Potassium 3.9 mmol/L (3.5-5.1); Protein, Total 7.3 g/dL (6.4-8.2)
[2018-04-17] MEDS: IPRATROPIUM BROM 0.5MG/2.5ML NEB SCH (19:17)
[2018-04-17 19:25] VITALS: O2SAT 97
[2018-04-17] MEDS: BACLOFEN 10 MG TAB PO SCH (20:34)
[2018-04-17] MEDS: TAMSULOSIN 0.4 MG SR CAP PO SCH (20:34)
[2018-04-17] MEDS: DIVALPROEX ER 250 MG TAB PO SCH (20:34)
[2018-04-17] MEDS: LORAZEPAM 1 MG TABLET PO SCH (20:35)
[2018-04-17] MEDS: cloNIDine HCl 0.1 MG TAB PO SCH (20:35)
[2018-04-18] MEDS: IPRATROPIUM BROM 0.5MG/2.5ML NEB SCH ×3 (01:44→13:50)
[2018-04-18] MEDS: NA CHLORIDE 0.9% 1,000 ML IV SCH (03:44)
[2018-04-18 05:09] LABS: Absolute Neutrophil 4.7 K/uL (1.8-8.0); Basophils % 0.3 % (0-1.3); Eosinophils % 1.4 % (0-4.4); Hematocrit 39.6 % (39.6-49.0); Lymphocytes % 25.8 % (15.3-44.8); MCH 30.9 pg (27.0-35.0); MCV 90.8 fL (80-100); MPV 7.4 fL (7.6-11.3); Monocytes % 12.6 % (3.3-12.3); RBC Red Blood Cell Count 4.36 M/uL (4.33-5.43)
[2018-04-18 05:32] LABS: Albumin 2.8 g/dL (3.4-5.0); Bilirubin Total 0.2 mg/dL (0.2-1.0); Protein, Total 6.9 g/dL (6.4-8.2)
[2018-04-18] MEDS: TAMSULOSIN 0.4 MG SR CAP PO SCH (08:00)
[2018-04-18] MEDS: cloNIDine HCl 0.1 MG TAB PO SCH (08:00)
[2018-04-18] MEDS: BACLOFEN 10 MG TAB PO SCH (08:00)
[2018-04-18] MEDS: LORAZEPAM 1 MG TABLET PO SCH (08:00)
[2018-04-18] MEDS: DIVALPROEX ER 250 MG TAB PO SCH (08:01)
[2018-04-18] MEDS ORDERED: PALIPERIDONE PALMITATE PO SCH (09:00)
[2018-04-18] MEDS ORDERED: CYANOCOBALAMIN 1,000 MCG TAB PO SCH (09:00)
--- NOTE | 2018-04-18 09:32 | EKG ---
Test Date: 2018-04-17 Test Time: 10:57:36 Relief Map Modeler: YUKI MEASUREMENT RESULTS: Intervals: Rate: 76 ID: [id number] QRSD: 102 QT: 382 QTc: 429 [place]: P: 53 ID: [id number] QRS: -10 T: 1 INTERPRETIVE STATEMENTS: Normal sinus rhythm Incomplete right bundle branch block Borderline ECG Compared to ECG 06/16/2005 09:50:00 Incomplete right bundle-branch block now present Atrial premature complex(es) no longer present Electronically Signed On 04-18-18 09:28:25 CDT by Peter Aguilar
[2018-04-18 12:14] VITALS: BP 116/66; TEMP 97.6
--- NOTE | 2018-04-19 05:11 | DS ---
Discharge Diagnoses: 1.Incidental ingestion of patient's father's drugs. 2.History of attention deficit hyperactivity disorder. 3.History of autism. 4.Hypertension. 5.Mental retardation. Procedure: None. Consult: None. History Of Present Illness: Please refer to my H and P yesterday. Hospital Course: Initially, the patient presented to the hospital with his mother as he ingested his father's medication for diuretics, antiparkinson drugs, and high blood pressure drugs and the ER elena coffey at [facility] advised to observe the patient for 24 hours in the hospital and the p atvilma was observed. Labs were all normal including chemistry and CBC. He will be discharged today in stable condition. Continue his home medication. Discharge Condition: Stable. Discharged Diet: Cardiac. Discharge Followup: With primary care physician this week. Discharge Activity: As tolerated. Discharge Medication: All previously like, on admission medication Invega 1.5 mg IM as before, baclo fen 10 mg twice a day, clonidine 0.2 mg twice a day, cranberry extract as before, vitamin B12 two tab lets once a day, Depakote ER 500 mg twice a day, Atrovent inhaler, lorazepam 1 mg as needed twice a d ay, Flomax 0.4 mg orally twice a day. Discharge Physical Examination: Vital Signs: Blood pressure is 116/66, heart rate 20, pulse 58, tem perature 97.6. General: The patient is alert and oriented x1. Does not look in any distress. HEENT: Atraumatic and normocephalic. PERRLA. Oral mucosa is moist. Neck: Supple. No JVD. No carotid bruits. Chest: Clear to auscultation. Good air entry. Heart: Regular rate and rhythm. S1, S2 normal. No gallop or murmur. Abdomen: Soft, nontender. No masses. No hepatosplenomegaly. Positive bowel sounds. Extremities: No clubbing, cyanosis, or edema. No calf tenderness. Neurologic: Grossly intact. HOLLY/GATO Voice ID: [id number] Report ID: [id number]
== END 2018-04-18 14:38 | disposition home or self-care (01) ==
LOC: ER 10:39 → ERHOLD 12:19 → 4TH 13:42
PROVIDERS: ADMIT Internal Medicine; ATTEND Internal Medicine
DX: R42 Dizziness and giddiness (principal); T50.2X5A Adverse effect of carbonic-anhydrase inhibitors, benzothiadiazides and other diuretics, initial encounter; T42.8X5A Adverse effect of antiparkinsonism drugs and other central muscle-tone depressants, initial encounter; T46.5X5A Adverse effect of other antihypertensive drugs, initial encounter; Y92.009 Unspecified place in unspecified non-institutional (private) residence as the place of occurrence of the external cause; F90.9 Attention-deficit hyperactivity disorder, unspecified type; I10 Essential (primary) hypertension; F79 Unspecified intellectual disabilities
CPT/HCPCS: 36415; 71045; 80048; 80053; 80076; 80164; 80307; 80320; 80329; 81003; 81015; 82550; 82553; 83735; 83880; 84443; 84484; 85025; 85610; 85730; 87086; 87088; 93005; 94640; 96361; 96374; 99284; G0378; J0696; J7030

== ENCOUNTER 2019-05-21 13:47 | Emergency (ER) | payer BC, OTHER ==
--- OUTSIDE RECORDS SUMMARY | 2019-05-21 13:50 | XMS REPORT | Continuity of Care Document ---
:1980 Author Organization [email or web address] Care Team Providers Name Role Phone [email or web address] Unavailable Unavailable Problems Problem Status Onset Classification Date Comments Source Date Reported M54.5 LOW BACK Active 06/13/20 [facility] SPECIALS NEEDS Discharge 11/11/19 11/13/2014 Diagnosis: [facility] Urinary tract infection UNINARY PROBLEMS Active 11/11/19 [facility] ADHD (Confirmed) Resolved Problem 06/30/2016 [facility] Constipation Resolved Problem 06/30/2016 [facility] Explosive Resolved Problem 06/30/2016 personality [facility] disorder 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/30/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 [facility] Oppositional Resolved Problem 06/30/2016 defiant behavior [facility] 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/30/2016 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[facility] disorder UTI (Confirmed) Resolved Problem 06/30/2016 [facility] Autism Active Problem 06/30/2016 [facility] Diverticula, Active Problem 06/30/2016 bladder [facility] LOW BACK PAIN Active [facility] Medications Medication Details Route Status Patient Ordering Order Source Instructions Provider Date Meperidine 12.5 mg, Route: Inactive IVP, Q30Min, 2015 [facility] Dosing Weight 105.568, kg, PRN Other -See Comment, For shivering, Start date: 06/27/16 10:12:00 CDT, Duration: 2 doses or times, Stop date: Limited # of times Ondansetron 4 mg, Route: Inactive IVP, ONCE, 2015 [facility] Dosing Weight 105.568, kg, PRN Nausea & Vomiting, Start date: 06/27/16 10:12:00 CDT Flumazenil 0.2 mg, Route: Inactive IVP, PRN, Dosing 2015 [facility] Weight 105.568, kg, PRN Benzodiazepine Reversal, Initial dose, Start date: 06/27/16 10:12:00 CDT, Duration: 30 day, Stop date: 07/27/16 10:11:00 CDT Fentanyl 50 microgram, Inactive 09 Route: IVP, 2015 [facility] Q5Min, Dosing Weight 105.568, kg, PRN Pain Score 7-10, Start date: 06/27/16 10:12:00 CDT, Duration: 2 doses or times, Stop date: Limited # of times Naloxone 0.4 mg, Route: Inactive IVP, Q2MIN, 2015 [facility] Dosing Weight 105.568, kg, PRN Narcotic Reversal, Start date: 06/27/16 10:12:00 CDT, Duration: 8 doses or times, Stop date: Limited # of times Hydromorphone 0.5 mg, Route: Inactive IVP, Q5Min, 2015 [facility] Dosing Weight 105.568, kg, PRN Pain Score 7-10, Start date: 06/27/16 10:12:00 CDT, Duration: 4 doses or times, Stop date: Limited # of times Oxycodone 10 mg, Route: Inactive PO, Drug form: 2015 [facility] TAB, Q4H, Dosing Weight 105.568, kg, PRN Pain Score 7-10, Start date: 06/27/16 10:12:00 CDT, Duration: 30 day, Stop date: 07/27/16 10:11:00 CDT Acetaminophen 1,000 mg, Route: Inactive PO, Drug form: 2015 [facility] TAB, ONCE, Dosing Weight 105.568, kg, PRN Pain Score 1-3, Start date: 06/27/16 10:12:00 CDT, Duration: 1 doses or times, Stop date: Limited # of times Cranberry oral 0 Refill(s) Active tablet 2015 [facility] Clonidine 0.2 mg=1 tab, Active Hydrochloride PO, BID, [address] [facility] 0.2 MG Oral Refill(s) Tablet Caltrate 600 + 1 tab, PO, BID, Active D 0 Refill(s) 2015 [facility] risperiDONE 2 2 mg=1 tab, PO, Active mg oral tablet BID, 0 Refill(s) 2015 [facility] benztropine 1 1 mg=1 tab, PO, Active mg oral tablet BID, 0 Refill(s) 2015 [facility] tamsulosin 0.4 0.4 mg=1 cap, Active mg oral capsule PO, Daily, [address] [facility] Refill(s) Divalproex 500 mg=1 tab, Active Sodium 500 MG PO, TID, [address] [facility] Enteric Coated Refill(s) Tablet [Depakote] baclofen 10 mg 10 mg=1 tab, PO, Active oral tablet TID, 0 Refill(s) 2015 [facility] clindamycin 150 150 mg=1 cap, Active mg oral capsule PO, Q6H, [address] [facility] Refill(s) Pyridium 100 mg 100 mg=1 tab, Active oral tablet PO, TID, 2014 [facility] Dysuria, # 6 tab, 0 Refill(s) Ciprofloxacin 500 mg=1 tab, Active 500 MG Oral PO, Q12H, # [address] [facility] Tablet [Cipro] tab, 0 Refill(s) Cipro 500 mg, Route: Inactive PO, ONCE, Dosing 2014 [facility] Weight 79.091, kg, Priority: STAT, Start date: 11/11/14 19:52:00, Stop date: 11/11/14 19:52:00 Allergies, Adverse Reactions, Alerts Substance Category Reaction Severity Reaction Status Date Comments Source type Reported codeine Assertion Drug Active allergy [facility] Immunizations Immunization Date Site Status Last Comments Source Given Updated tetanus-diphther Right completed Waqasriel [facility] ia toxoids 2 Deltoid Results Order Results Value Reference Date Interpretation Comments Source Name Range URINE UA 1.0 0.1 - 1.[address] [facility] STOOL URINE UA Nitrite Positive Negative AND *ABN* 2014 [facility] STOOL (11/11/14 7:35 PM) URINE UA Leuk Est Moderate Negative AND *ABN* 2014 [facility] STOOL (11/11/14 7:35 PM) URINE UA pH 6.0 5.0 - 8.[address] [facility] STOOL URINE UA Protein Trace Negative AND *ABN* 2014 [facility] STOOL (11/11/14 7:35 PM) URINE UA Glucose Negative Negative AND (11/11/14 7:35 PM) 2014 [facility] STOOL URINE UA Spec Grav 1.025 <=1.030 AND 2014 [facility] URINE UA Ketones Negative Negative AND *NA* 2014 [facility] STOOL (11/11/14 7:35 PM) URINE UA Bili Negative Negative AND *NA* 2014 [facility] (11/11/14 7:35 PM) URINE UA Blood Trace Negative AND *ABN* 2014 [facility] (11/11/14 7:35 PM) URINE UA Color Yellow Yellow AND *NA* 2014 [facility] STOOL (11/11/14 7:35 PM) URINE UA Turbidity Slight Cloudy Clear AND (11/11/14 7:35 PM) 2014 [facility] STOOL URINE UA Bacteria Moderate None Seen AND /HPF /HPF 2014 [facility] URINE UA WBC 51-100 /HPF None Seen AND /HPF 2014 [facility] URINE UA RBC 3-5 /HPF 0 - 2 AND 2014 [facility] URINE Micro? Performed AND (11/11/14 7:35 PM) 2014 [facility] URINE UA Sq Epi Few /LPF Few /LPF AND 2014 [facility] Pathology Reports No Data Provided for This Section Diagnostic Reports Report Value Date Source Spine lumbar wo Patient Name: OTTO VIGIL 06/27/2016 [facility] contrast MRI : 1980; Age: 35 years y/o Male MR: [id number] Study: Spine lumbar wo contrast MRI 06/27/2016 [...] no acute compression fracture. The anterior and poste rior paraspinal soft tissues are normal. The conus medullaris ends at the T12 -L1 level. For the sake of nomenclature, five [...] compression fracture or pathologic subluxation detected. SL: [id number] Consultation Notes No Data Provided for This Section Discharge Summaries No Data Provided for This Section History and Physicals No Data Provided for This Section Vital Signs Vital Sign Value Date Comments Source Respitory Rate 12 06/27/2016 [facility] Systolic (mm Hg) 140 06/27/2016 [facility] Diastolic (mm Hg) 89 06/27/2016 [facility] Respitory Rate 13 06/27/2016 [facility] Systolic (mm Hg) 151 06/27/2016 [facility] Diastolic (mm Hg) 84 06/27/2016 [facility] Systolic (mm Hg) 144 06/27/2016 [facility] Diastolic (mm Hg) 99 06/27/2016 [facility] Respitory Rate 14 06/27/2016 [facility] Heart Rate 61 06/27/2016 [facility] Temperature Oral (F) 98.1 F 06/27/2016 [facility] Height 180.34 cm 06/27/2016 [facility] BMI Calculated 32.46 06/27/2016 [facility] Weight 105.568 06/27/2016 [facility] Systolic (mm Hg) 131 11/12/2014 [facility] Respitory Rate 16 11/12/2014 [facility] Temperature Oral (F) 98.9 F 11/12/2014 [facility] Diastolic (mm Hg) 81 11/12/2014 [facility] Heart Rate 81 11/12/2014 [facility] Temperature Oral (F) 98.4 F 11/12/2014 [facility] Weight 79.091 11/12/2014 [facility] BMI Calculated 24.32 11/12/2014 [facility] Heart Rate 82 11/12/2014 [facility] Respitory Rate 18 11/12/2014 [facility] Diastolic (mm Hg) 83 11/12/2014 [facility] Systolic (mm Hg) 134 11/12/2014 [facility] Height 180.34 cm 11/12/2014 [facility] Respitory Rate 18 11/12/2014 [facility] Heart Rate 84 11/12/2014 [facility] Diastolic (mm Hg) 83 11/12/2014 [facility] Temperature Oral (F) 97.8 F 11/12/2014 [facility] Systolic (mm Hg) 134 11/12/2014 [facility] BMI Calculated 24.32 11/12/2014 [facility] Weight 79.091 11/12/2014 [facility] Height 180.34 cm 11/12/2014 [facility] Encounters Location Location Encounter Encounter Reason Attending ADM DC Status Source Details Type Number For Provider Date Date Visit [facility] [place] [id number] Waldo Romano 11/12 11/12 [facility] Emergency /2014 [facility] Outpatient [id number] Loy 06/27 06/28 [facility] /2015 [facility] Procedures Procedure Code Date Perfomer Comments Source Operation [id number] [facility] Assessment and Plan No Data Provided for This Section Plan of Care No Data Provided for This Section Social History Social History Date Source Social History TypeResponse 06/27/2016 [facility] Substance Abuse Use: None. Alcohol Never Smoking Status Never smoker; Exposure to Tobacco Smoke None; Cigarette Smoking Last 365 Days No; Reg Smoking Cessation Counseling No Family History No Data Provided for This Section Advance Directives No Data Provided for This Section Functional Status No Data Provided for This Section
[2019-05-21 14:40] LABS: Absolute Lymphocytes (CBC) 1.4 K/uL (0.7-4.9); Basophils % 0.5 % (0-1.3); Lymphocytes % 28.5 % (15.3-44.8); MPV 8.7 fL (7.6-11.3); RBC Red Blood Cell Count 4.26 M/uL (4.33-5.43)
[2019-05-21 14:44] LABS: Protime INR 0.89
[2019-05-21 15:04] LABS: ALT/SGPT 17 U/L (12-78); AST/SGOT 21 U/L (15-37); Albumin 3.5 g/dL (3.4-5.0); Alkaline Phosphatase 58 U/L (45-117); BUN Blood Urea Nitrogen 18 mg/dL (7-18); Bicarbonate 27 mmol/L (21-32); Bilirubin Direct < 0.1 mg/dL (0-0.2); Bilirubin Total 0.2 mg/dL (0.2-1.0); Glucose Level 75 mg/dL (74-106); Potassium 3.9 mmol/L (3.5-5.1); Protein, Total 7.5 g/dL (6.4-8.2); Sodium Level 143 mmol/L (136-145)
--- NOTE | 2019-05-21 15:12 | RAD REPORT ---
EXAM DESCRIPTION: US - Extremity Venous Uni Ltd - 05/21/2019 3:05 pm CLINICAL HISTORY: SWELLING Leg swelling and edema. COMPARISON: <Comparisons> FINDINGS: Right lower extremity venous system was interrogated with Doppler technique. Normal flow, compressibility and augmentation was noted. There is no DVT present. IMPRESSION: No evidence of right lower extremity deep venous thrombosis.
--- NOTE | 2019-05-21 15:23 | EDPHYS ---
Physician Documentation [facility] Name: Justyn Escobar Age: 38 yrs Sex: Male : 1980 Arrival Date: 05/21/2019 Time: 13:50 Bed 17 Private MD: ED Physician Thai Senior HPI: 05/21 13:54 This 38 yrs old Male presents to ER via EMS with complaints of Psych Problem. snw 13:54 The patient presents to the emergency department with anxiety, outburst. Onset: The snw symptoms/episode began/occurred suddenly, just prior to arrival. Past psychiatric history: lives in a half-way in [facility]. Responded to something Mom said by beating his head against the wall. Severity of symptoms: At their worst the symptoms were moderate. It is unknown whether or not the patient has had similar symptoms in the past. It is unknown whether or not the patient has recently seen a physician. Mental health en route per EMS. Historical: - Allergies: 13:56 Codeine; ss - Home Meds: 14:01 benztropine 1 mg Oral tab 1 tab 2 times per day [Active]; clonidine HCl 0.2 mg Oral tab ss 1 tab 2 times per day [Active]; Ativan 1 mg Oral tab 1 tab 3 times per day [Active]; baclofen 10 mg Oral tab 1 tab 3 times per day [Active]; Flomax 0.4 mg Oral cp24 1 cap once daily [Active]; Depakote ER 500 mg Oral Tb24 2 tabs twice a day [Active]; Chlorpramozine 50 mg once DAILY [Active]; - PMHx: 13:56 ADD/ADHD; Autism; ss 14:01 Diverticulated bladder; MHMR; Intermittent explosive disorder; ss 14:05 lymphedema (R leg); ss - PSHx: 13:56 right testicle removed; ss - Immunization history:: Adult Immunizations up to date. - Social history:: Smoking status: Patient/guardian denies using tobacco. - Ebola Screening: : Patient denies exposure to infectious person Patient denies travel to an Ebola-affected area in the 21 days before illness onset. ROS: 13:54 Eyes: Negative for injury, pain, redness, and discharge, ENT: Negative for injury, snw pain, and discharge, Neck: Negative for injury, pain, and swelling, Cardiovascular: Negative for chest pain, palpitations, and edema, Respiratory: Negative for shortness of breath, cough, wheezing, and pleuritic chest pain, Abdomen/GI: Negative for abdominal pain, nausea, vomiting, diarrhea, and constipation, Back: Negative for injury and pain, : Negative for injury, bleeding, discharge, and swelling, MS/Extremity: Negative for injury and deformity, Skin: Negative for injury, rash, and discoloration, Neuro: Negative for headache, weakness, numbness, tingling, and seizure, Psych: Negative for depression, anxiety, suicide ideation, homicidal ideation, and hallucinations. 13:54 Constitutional: Positive for "I'm sick". Exam: 13:54 Constitutional: This is a well developed, well nourished patient who is awake, alert, snw and in no acute distress. 13:54 Eyes: Pupils equal round and reactive to light, extra-ocular motions intact. Lids and lashes normal. Conjunctiva and sclera are non-icteric and not injected. Cornea within normal limits. Periorbital areas with no swelling, redness, or edema. ENT: Nares patent. No nasal discharge, no septal abnormalities noted. Tympanic membranes are normal and external auditory canals are clear. Oropharynx with no redness, swelling, or masses, exudates, or evidence of obstruction, uvula midline. Mucous membranes moist. Neck: Trachea midline, no thyromegaly or masses palpated, and no cervical lymphadenopathy. Supple, full range of motion without nuchal rigidity, or vertebral point tenderness. No Meningismus. Chest/axilla: Normal chest wall appearance and motion. Nontender with no deformity. No lesions are appreciated. Cardiovascular: Regular rate and rhythm with a normal S1 and S2. No gallops, murmurs, or rubs. Normal PMI, no JVD. No pulse deficits. Respiratory: Lungs have equal breath sounds bilaterally, clear to auscultation and percussion. No rales, rhonchi or wheezes noted. No increased work of breathing, no retractions or nasal flaring. Abdomen/GI: Soft, non-tender, with normal bowel sounds. No distension or tympany. No guarding or rebound. No evidence of tenderness throughout. Back: No spinal tenderness. No costovertebral tenderness. Full range of motion. 13:54 Head/face: Noted is abrasion(s), that are moderate, of the forehead. 13:54 Musculoskeletal/extremity: Edema, 3+ to the right midcalf, right ankle and right foot is noted. 13:54 Skin: Appearance: normal except for affected area, injury, abrasion(s), very small abrasion noted, moderate sized abrasion noted, of the forehead and left hand. 13:54 Neuro: Orientation: appropriate for stated age, Mentation: able to follow commands, slow to respond, Memory: unable to test, seizure activity, is not displayed by the patient, grinding teeth. 13:54 Psych: Behavior/mood is uncooperative, inappropriate for age, Affect is flat, Oriented to person, place, time, denies presently, Judgement / Insight is impaired. Vital Signs: 13:56 BP 108 / 75; Pulse 78; Resp 18; Temp 98.2(TE); Pulse Ox 98% on R/A; Weight 95.71 kg; ss MDM: 13:54 Patient medically screened. snw 14:56 Data reviewed: vital signs, nurses notes. Data interpreted: Pulse oximetry: on room air snw is 98 %. Interpretation: normal. Counseling: I had a detailed discussion with the patient and/or guardian regarding: the historical points, exam findings, and any diagnostic results supporting the discharge/admit diagnosis, lab results, radiology results, the need for outpatient follow up, pt resides in half-way, telemedicine psych services are available on site. Will medically clear and discharge to [facility] for return home. Pt severely mentally impaired.. 15:24 Special discussion: Based on the history and exam findings, there is no indication for snw further emergent testing or inpatient evaluation. I discussed with the patient/guardian the need to see the psychiatrist for further evaluation of the symptoms. 05/21 14:17 Order name: Acetaminophen; Complete Time: 15:06 snw 05/21 14:17 Order name: Basic Metabolic Panel; Complete Time: 15:07 snw 05/21 14:17 Order name: CBC with Diff; Complete Time: 14:55 snw 05/21 14:17 Order name: ETOH Level; Complete Time: 14:55 snw 05/21 14:17 Order name: Hepatic Function; Complete Time: 15:07 snw 05/21 14:17 Order name: PT-INR; Complete Time: 14:55 snw 05/21 14:17 Order name: Ptt, Activated; Complete Time: 14:55 snw 05/21 14:17 Order name: Salicylate; Complete Time: 14:55 snw 05/21 14:17 Order name: EKG; Complete Time: 14:19 snw 05/21 14:17 Order name: EKG - Nurse/Tech; Complete Time: 14:43 snw 05/21 14:17 Order name: US Extremity Venous Unilateral Ltd; Complete Time: 15:14 snw 05/21 14:33 Order name: Diet Regular; Complete Time: 14:33 em 05/21 14:17 Order name: IV Saline Lock; Complete Time: 14:33 snw 05/21 14:17 Order name: Labs collected and sent; Complete Time: 14:32 snw 05/21 14:59 Order name: Wound Care; Complete Time: 07:19 snw Administered Medications: 15:07 Not Given (Physician Discretion; mother reports he received one last month when he was em hospitalized): Tetanus-Diphtheria Toxoid Adult 0.5 ml IM once Disposition: 05/21/19 15:22 Discharged to Home. Impression: Behavioral Outburst, Edema, unspecified. - Condition is Stable. - Discharge Instructions: Self-Destructive Behavior, Peripheral Edema. - Medication Reconciliation Form, Thank You Letter, Antibiotic Education, Prescription Opioid Use form. - Follow up: Private Physician; When: 2 - 3 days; Reason: Recheck today's complaints, Continuance of care, Re-evaluation by your physician. Follow up: Emergency Department; When: As needed; Reason: Worsening of condition. Signatures: Dispatcher [employer] Xena Díaz, VIKY-C YEAST PUSHER-Csnw Romaine Dutta, SOFTWARE DEVELOPMENT SPECIALIST SOFTWARE DEVELOPMENT SPECIALIST em Aggie Willingham, RN RN ss Corrections: (The following items were deleted from the chart) 13:58 13:51 Immunization history: Adult Immunizations [facility] 15:55 15:22 05/21/2019 15:22 Discharged to Home. Impression: Behavioral Outburst; Edema, em unspecified. Condition is Stable. Forms are Medication Reconciliation Form, Thank You Letter, Antibiotic Education, Prescription Opioid Use. Follow up: Private Physician; When: 2 - 3 days; Reason: Recheck today's complaints, Continuance of care, Re-evaluation by your physician. Follow up: Emergency Department; When: As needed; Reason: Worsening of condition. snw
--- NOTE | 2019-05-21 15:23 | ER ---
Nurse's Notes [facility] Name: Justyn Escobar Age: 38 yrs Sex: Male : 1980 Arrival Date: 05/21/2019 Time: 13:50 Bed 17 [facility] MD: Diagnosis: Behavioral Outburst;Edema, unspecified Presentation: 05/21 13:51 Presenting complaint: EMS states: Hit head on wall because mother reportedly made him ss upset. Pt denies wanting to hurt himself or anyone else right now, but states, "I'm sick.". Transition of care: patient was not received from another setting of care. Onset of symptoms was May 21, 2019. Risk Assessment: Do you want to hurt yourself or someone else? Other: Patient's injury is self inflicted. Initial Sepsis Screen: Does the patient meet any 2 criteria? No. Patient's initial sepsis screen is negative. Does the patient have a suspected source of infection? No. Patient's initial sepsis screen is negative. Care prior to arrival: None. 13:51 Method Of Arrival: EMS: [facility] 13:51 Acuity: ENRIQUE 2 ss Historical: - Allergies: 13:56 Codeine; ss - Home Meds: 14:01 benztropine 1 mg Oral tab 1 tab 2 times per day [Active]; clonidine HCl 0.2 mg Oral tab ss 1 tab 2 times per day [Active]; Ativan 1 mg Oral tab 1 tab 3 times per day [Active]; baclofen 10 mg Oral tab 1 tab 3 times per day [Active]; Flomax 0.4 mg Oral cp24 1 cap once daily [Active]; Depakote ER 500 mg Oral Tb24 2 tabs twice a day [Active]; Chlorpramozine 50 mg once DAILY [Active]; - PMHx: 13:56 ADD/ADHD; Autism; ss 14:01 Diverticulated bladder; MHMR; Intermittent explosive disorder; ss 14:05 lymphedema (R leg); ss - PSHx: 13:56 right testicle removed; ss - Immunization history:: Adult Immunizations up to date. - Social history:: Smoking status: Patient/guardian denies using tobacco. - Ebola Screening: : Patient denies exposure to infectious person Patient denies travel to an Ebola-affected area in the 21 days before illness onset. Screenin:21 Abuse screen: Denies threats or abuse. Nutritional screening: No deficits noted. em Tuberculosis screening: No symptoms or risk factors identified. Fall Risk None identified. Assessment: 14:31 General: Appears in no apparent distress. comfortable, Behavior is calm, cooperative, em denies wanting to hurt himself or others. Pain: Complains of pain in forehead Unable to use pain scale. FLACC scale score is 0 out of 10. Neuro: Level of Consciousness is awake, alert, obeys commands, Oriented to person, place, time, situation, Denies headache. Cardiovascular: Capillary refill < 3 seconds Patient's skin is warm and dry. Respiratory: Airway is patent Respiratory effort is even, unlabored, Respiratory pattern is regular, symmetrical. Derm: Skin is intact, is healthy with good turgor, Skin is pink, warm \\T\\ dry. Wound noted forehead. Musculoskeletal: Range of motion: intact in all extremities, Swelling present in right foot and left foot. Injury Description: Abrasion sustained to forehead. 14:45 Reassessment: The previous assessment is accurate, sitter remains with patient. ss 15:54 Reassessment: Patient appears in no apparent distress at this time. Patient and/or em family updated on plan of care and expected duration. Pain level reassessed. Patient is alert, oriented x 3, equal unlabored respirations, skin warm/dry/pink. Patient states feeling better. Vital Signs: 13:56 BP 108 / 75; Pulse 78; Resp 18; Temp 98.2(TE); Pulse Ox 98% on R/A; Weight 95.71 kg; ss ED Course: 13:50 Patient arrived in ED. ss 13:51 Thai Senior MD is Attending Physician. gs 13:54 X[facility] Ellison [facility]C [facility] snw 13:55 Triage completed. ss 13:56 Arm band placed on right wrist. ss 14:19 Romaine Dutta LVN is Primary Nurse. em 14:21 Patient has correct armband on for positive identification. Placed in gown. Bed in low em position. Pulse ox on. NIBP on. 15:05 Ultrasound completed. Patient tolerated well. sg3 15:06 US Extremity Venous Unilateral Ltd In Process Unspecified. EDMS 15:53 No provider procedures requiring assistance completed. IV discontinued, intact, em bleeding controlled, No redness/swelling at site. Pressure dressing applied. Administered Medications: 15:07 Not Given (Physician Discretion; mother reports he received one last month when he was em hospitalized): Tetanus-Diphtheria Toxoid Adult 0.5 ml IM once Outcome: 15:22 Discharge ordered by . snw 15:53 Discharged to home ambulatory, with family. em 15:53 Condition: good 15:53 Discharge instructions given to patient, family, Instructed on discharge instructions, follow up and referral plans. Demonstrated understanding of instructions, follow-up care. 15:55 Patient left the ED. em Signatures: Dispatcher [employer] EDIN Xena Ellison, SHOP DIRECTOR-C SHOP DIRECTOR-Sidneyw Romaine Dutta, FAREBOX REPAIRER FAREBOX REPAIRER em Aggie Willingham, CARLA RN Thai Senior MD MD gs Godinez, Sarah sg3 Corrections: (The following items were deleted from the chart) 13:58 13:51 Immunization history: Adult Immunizations [facility] 15:00 14:45 Reassessment: The previous assessment is accurate, call light remains within ss reach. 15:54 14:31 General: Appears in no apparent distress. comfortable, Behavior is calm, em cooperative, em
[2019-05-21 16:19] VITALS: BP 108/75; TEMP 98.2; O2SAT 98
--- NOTE | 2019-05-22 16:59 | EKG ---
Test Date: 2019-05-21 Test Time: 14:39:29 Type Disk Quality Control Supervisor: SIMRAN MEASUREMENT RESULTS: Intervals: Rate: 65 NC: 152 QRSD: 108 QT: 382 QTc: 397 Mobile: P: 44 NC: 152 QRS: -15 T: 20 INTERPRETIVE STATEMENTS: Normal sinus rhythm Incomplete right bundle branch block Borderline ECG Compared to ECG 04/17/2018 10:57:36 No significant changes Electronically Signed On 05-22-19 16:56:19 CDT by Peter Aguilar
== END 2019-05-21 15:55 | disposition home or self-care (01) ==
LOC: ER 13:47
DX: F91.8 Other conduct disorders (principal); R60.9 Edema, unspecified; F84.0 Autistic disorder; F90.2 Attention-deficit hyperactivity disorder, combined type; Z88.6 Allergy status to analgesic agent
CPT/HCPCS: 36415; 80048; 80076; 80320; 80329; 85025; 85610; 85730; 93005; 93971; 99283

== ENCOUNTER 2020-09-14 07:49 | Emergency (ER) | payer BC, OTHER ==
--- OUTSIDE RECORDS SUMMARY | 2020-09-14 07:51 | XMS REPORT | Summary of Care ---
:1980 Author Organization [facility] [place] [address] Care Team Providers Name Role Phone MD Karthik Primary Care Provider Unavailable Reason for Visit Reason Comments Follow Up Encounter Details Date Type Department Care Team Description 06/19/2020 Office Visit [facility], Austin Schultz MD Follow Up Medicine Urology [address] [place] [address] [address]LO[address], [address], [place] [address] [place] [address] [phone] Allergies Active Allergy Reactions Severity Noted Date Comments Codeine Other (See Comments) 10/09/2015 whelps documented as of this encounter (statuses as of 06/19/2020) Medications Medication Sig Dispensed Refills Start Date End Date Status benztropine Take 1 mg 0 Active (COGENTIN) 1 MG by mouth tablet two times daily. lorazepam (ATIVAN) 1 Take 1 mg 0 Active MG tablet by mouth every 8 hours as needed for Anxiety. Cranberry (ELLURA Take by 0 Ac tive OR) mouth. INVEGA SUSTENNA 234 0 11/25/2017 Active MG/1.5ML SUSP ChlorproMAZINE HCl Take by 0 A ctive (THORAZINE OR) mouth. Tamsulosin HCl 0.4 Take 0.8 mg 270 Cap 3 12/09/2018 Active MG CAPSIndications: by mouth at Incomplete bladder bedtime. emptying, Dysfunctional voiding of urine baclofen (LIORESAL) Take 10 mg 0 06/27/2016 Active 10 MG tablet by mouth. baclofen (LIORESAL) TAKE 1 90 Tab 10 03/09/2020 Active 10 MG TABLET BY tabletIndications: MOUTH THREE Neurogenic bladder TIMES DAILY clonidine Take 0.2 mg 0 Disconti nued (CATAPRESS) 0.2 MG by mouth 0 ( *Therapy tablet two times completed) daily. Tamsulosin HCl 0.4 Take 0.8 mg 180 Cap 3 11/14/2019 06/19/20 2 Discontinued MG CAPSIndications: by mouth at 0 (*Therapy Hydronephrosis, bedtime. comp leted) unspecified hydronephrosis type, Incomplete bladder emptying, Dysfunctional voiding of urine documented as of this encounter (statuses as of 06/19/2020) Active Problems No known active problemsdocumented as of this encounter (statuses as of 06/19/2020) Social History Tobacco Use Types Packs/Day Years Used Date Never Smoker Smokeless Tobacco: Never Used Alcohol Use Drinks/Week oz/Week Comments No Sex Assigned at Date Recorded Not on file documented as of this encounter Last Filed Vital Signs Vital Sign Reading Time Taken Comments Blood Pressure 106/69 06/19/2020 10:52 AM CDT Pulse 67 06/19/2020 10:52 AM CDT Temperature - - Respiratory Rate - - Oxygen Saturation - - Inhaled Oxygen Concentration - - Weight - - Height - - Body Mass Index - - documented in this encounter Progress Notes Justyn Mendoza MD - 06/19/2020 10:50 AM CDT Referring Physician Justyn Mendoza MD [address] [facility] 10th [address], [place] [address] Patient Name: Justyn Escobar :1980 [facility] ID#:[id number] Mr. Escobar is 36 yo male with h/o MHMR with ADHD with longstanding h/o UTI's--had right testicle removed at age 14. Tried but failed condom cath. On cranberry supplement and align. H/o incomplete emptying. Pt had VUDS which showed Detrusor overactivity with elevated bladder pressures of up to 100cm with + sphincter activity and incomplete emptying, normal compliance. Pt also had elevated bladder neck by cysto but no bilobar enlargement. Bladder biopsy negative. Renal u/s with no hydro. Pt ontamsulosin 0.4mg po qhs and baclofen 10mg po bid or tid. Pt was hospitalized at [facility] with dehydration, noted to have pyuria---urine culture showed 10-19,000 gram neg rods--ID did not want to treat but gave him dose of iv abx. Pt was hospitalized for 2 days. Pt here for followup. On tamsulosin 0.8mg po qhs. Renal u/s: Right renal cyst Pt without UTI's since last seen. Was hospitalized in April at [facility] for sepsis related to right lower leg cellulitis. Had DARIA at same time. In hospital for 3 days for iv abx. 06/19/2020 Pt here for followup. On tamsulosin 0.8mg po qhs. Normal creatinine 08/2019. Has had few non-febrile UTI's since last seen. Pt was placed on vesicare by doctor at facility he is living at. Renal u/s: normal Past Medical History: Diagnosis Date Autism Frequent UTI Intermittent explosive disorder Past Surgical History: Procedure Laterality Date HX TESTICLE SURGERY Medications: Current Outpatient Medications: baclofen (LIORESAL) 10 MG tablet, TAKE 1 TABLET BY MOUTH THREE TIMES DAILY, Disp: 90 Tab, Rfl: 10 baclofen (LIORESAL) 10 MG tablet, Take 10 mg by mouth., Disp: , Rfl: benztropine (COGENTIN) 1 MG tablet, Take 1 mg by mouth two times daily., Disp: , Rfl: ChlorproMAZINE HCl (THORAZINE OR), Take by mouth., Disp: , Rfl: Cranberry (ELLURA OR), Take by mouth., Disp: , Rfl: INVEGA SUSTENNA 234 MG/1.5ML SUSP, , Disp: , Rfl: lorazepam (ATIVAN) 1 MG tablet, Take 1 mg by mouth every 8 hours as needed for Anxiety., Disp: , Rfl: Tamsulosin HCl 0.4 MG CAPS, Take 0.8 mg by mouth at bedtime., Disp: 270 Cap, Rfl: 3 Outpatient Medications Prior to Visit Medication Sig Dispense Refill baclofen TAKE 1 TABLET BY MOUTH THREE TIMES DAILY 90 Tab 10 baclofen Take 10 mg by mouth. benztropine Take 1 mg by mouth two times daily. ChlorproMAZINE HCl (THORAZINE OR) Take by mouth. [DISCONTINUED] clonidine Take 0.2 mg by mouth two times daily. Cranberry (ELLURA OR) Take by mouth. Invega Sustenna lorazepam Take 1 mg by mouth every 8 hours as needed for Anxiety. [DISCONTINUED] Tamsulosin HCl Take 0.8 mg by mouth at bedtime. 180 Cap 3 Tamsulosin HCl Take 0.8 mg by mouth at bedtime. 270 Cap 3 No facility-administered medications prior to visit. Social History Socioeconomic History Marital status: Single Spouse name: Not on file Number of children: Not on file Years of education: Not on file Highest education level: Not on file Occupational History Not on file Social Needs Financial resource strain: Not on file Food insecurity Worry: Not on file Inability: Not on file Transportation needs Medical: Not on file Non-medical: Not on file Tobacco Use Smoking status: Never Smoker Smokeless tobacco: Never Used Substance and Sexual Activity Alcohol use: No Drug use: No Sexual activity: Not on file Lifestyle Physical activity Days per week: Not on file Minutes per session: Not on file Stress: Not on file Relationships Social connections Talks on phone: Not on file Gets together: Not on file Attends sikhism service: Not on file Active member of club or organization: Not on file Attends meetings of clubs or organizations: Not on file Relationship status: Not on file Intimate partner violence Fear of current or ex partner: Not on file Emotionally abused: Not on file Physically abused: Not on file Forced sexual activity: Not on file Other Topics Concerns: Not on file Social History Narrative Not on file family history is not on file. Allergies Allergen Reactions Codeine Other (See Comments) whelps Review of Systems: Constitutional: Negative. HENT: Negative. Eyes: Negative. Gastrointestinal: Positive for diarrhea. Endocrine: Negative. Genitourinary: Positive for urgency. Musculoskeletal: Negative. Allergic/Immunologic: Negative. Neurological: Negative. Psychiatric/Behavioral: Positive for behavioral problems. The patient is nervous/anxious and is hyperactive. Physical Exam: Vitals: see in note above GENERAL: Well developed, well nourished, in no acute distress HEAD: Normocephalic and atraumatic CHEST Regular respiratory rate NEURO: SLATER well. Patient alert and oriented x3. PSYCH: Alert and cooperative; normal mood and affect; normal attention span and concentration Most Recent Labs: No results found for this or any previous visit (from the past 4032 hour(s)). Urinalysis: neg PVR: 800 ml Most Recent Imaging: @RADRESULTS@ Assessment: 1. Incomplete emptying/? Dysfunctional voider Plan: 1. Refill tamsulosin 0.8mg po qhs 90 day supply with 3 refills 2. Double void 3. Stop vesicare 4. Standing order for urine culture 5. RTC 1 yr with preclinic renal u/s 6. Recheck pvr documented in this encounter Plan of Treatment Health Maintenance Due Date Last Done Comments TETANUS SHOT (ADULT) 1995 BMI FOLLOW UP PLAN 1998 HIV SCREENING 1998 FLU VACCINE > 6 MONTHS 05/05/2020 06/11/2018 (Declined), (Declined) ZOSTER VACCINE (1 of 2) 2030 documented as of this encounter Results Not on filedocumented in this encounter Visit Diagnoses Diagnosis Incomplete bladder emptying - Primary documented in this encounter Insurance Payer Benefit Plan / Subscriber ID Effective Phone Address T e Group Dates [employer]UE [employer] BLUE OUT OF STATE [id number] 2015-Pre PO [address] PPO [employer] BCBS - PPO - sent [id number] [place] [address] [facility] PLAN [id number] 2017-Pres [address] [address] Medicaid [employer] [place] [address] documented as of this encounter
--- OUTSIDE RECORDS SUMMARY | 2020-09-14 07:51 | XMS REPORT | Continuity of Care Document ---
:1980 Author Organization [employer] Care Team Providers Name Role Phone [employer] Unavailable Un available Problems Problem Status Onset Classification Date Comments Sourc e Date Reported M54.5 LOW BACK Active 06/13/20 PAINPT 16 [place] SPECIALS NEEDS Discharge 11/11/19 11/13/2014 Diagnosis: 15 [facility] Urinary tract infection UNINARY PROBLEMS Active 11/11/19 15 [facility] Attention Resolved Problem 06/30/2016 deficit [facility] hyperactivity disorder (disorder) Autistic Active Problem 06/30/2016 disorder [facility] (disorder) Constipation Resolved Problem 06/30/2016 MH (disorder) [facility] Diverticulum of Active Problem 06/30/2016 bladder [facility] (disorder) Explosive Resolved Problem 06/30/2016 personality [place] [facility] disorder (disorder) 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/30/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 [place] (disorder) Oppositional Resolved Problem 06/30/2016 defiant disorder [facility] (disorder) 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) Urinary tract Resolved Problem 06/30/2016 infectious [place] disease (disorder) LOW BACK PAIN Active [facility] Medications Medication Details Route Status Patient Ordering Order Source Instructions Provider Date Meperidine 12.5 mg, Route: Inactive IVP, Q30Min, 2015 [facility] Dosing Weight 105.568, kg, PRN Other -See Comment, For shivering, Start date: 06/27/16 10:12:00 CDT, Duration: 2 doses or times, Stop date: Limited # of times Ondansetron 4 mg, Route: Inactive IVP, ONCE, 2015 [facility] Dosing Weight 105.568, kg, PRN Nausea & Vomiting, Start date: 06/27/16 10:12:00 CDT Flumazenil 0.2 mg, Route: Inactive IVP, PRN, Dosing 2015 [facility] [address] Weight 105.568, kg, PRN Benzodiazepine Reversal, Initial dose, Start date: 06/27/16 10:12:00 CDT, Duration: 30 day, Stop date: 07/27/16 10:11:00 CDT Fentanyl 50 microgram, Inactive Route: IVP, 2015 [facility] Q5Min, Dosing Weight 105.568, kg, PRN Pain Score 7-10, Start date: 06/27/16 10:12:00 CDT, Duration: 2 doses or times, Stop date: Limited # of times Naloxone 0.4 mg, Route: Inactive IVP, Q2MIN, 2015 [facility] Dosing Weight 105.568, kg, PRN Narcotic Reversal, Start date: 06/27/16 10:12:00 CDT, Duration: 8 doses or times, Stop date: Limited # of times Hydromorphone 0.5 mg, Route: Inactive IVP, Q5Min, 2015 [facility] Dosing Weight 105.568, kg, PRN Pain Score 7-10, Start date: 06/27/16 10:12:00 CDT, Duration: 4 doses or times, Stop date: Limited # of times Oxycodone 10 mg, Route: Inactive PO, Drug form: 2015 [facility] TAB, Q4H, Dosing Weight 105.568, kg, PRN Pain Score 7-10, Start date: 06/27/16 10:12:00 CDT, Duration: 30 day, Stop date: 07/27/16 10:11:00 CDT Acetaminophen 1,000 mg, Route: Inactive PO, Drug form: 2015 [facility] TAB, ONCE, Dosing Weight 105.568, kg, PRN Pain Score 1-3, Start date: 06/27/16 10:12:00 CDT, Duration: 1 doses or times, Stop date: Limited # of times Cranberry oral 0 Refill(s) Active tablet 2015 [facility] Clonidine 0.2 mg = 1 tab, Active Hydrochloride PO, BID, 0 [address] [facility] [address] 0.2 MG Oral Refill(s) Tablet Caltrate 600 + 1 tab, PO, BID, Active H D 0 Refill(s) 2015 risperiDONE 2 2 mg = 1 tab, Active mg oral tablet PO, BID, 0 2015 [facility] ast Refill(s) benztropine 1 1 mg = 1 tab, Active mg oral tablet PO, BID, 0 2015 [facility] ast Refill(s) tamsulosin 0.4 0.4 mg = 1 cap, Active H mg oral capsule PO, Daily, 0 2015 [facility] Refill(s) Divalproex 500 mg = 1 tab, Active Sodium 500 MG PO, TID, 0 2015 [facility] Enteric Coated Refill(s) Tablet [Depakote] baclofen 10 mg 10 mg = 1 tab, Active oral tablet PO, TID, 0 2015 [facility] Refill(s) clindamycin 150 150 mg = 1 cap, Active mg oral capsule PO, Q6H, 0 2015 [facility] Refill(s) Pyridium 100 mg 100 mg = 1 tab, Active oral tablet PO, TID, 2014 [facility] Dysuria, # 6 tab, 0 Refill(s) Ciprofloxacin 500 mg = 1 tab, Active 500 MG Oral PO, Q12H, # 14 2014 [facility] Tablet [Cipro] tab, 0 Refill(s) Cipro 500 mg, Route: Inactive PO, ONCE, Dosing 2014 [facility] Weight 79.091, kg, Priority: STAT, Start date: 11/11/14 19:52:00, Stop date: 11/11/14 19:52:00 Allergies, Adverse Reactions, Alerts Substance Category Reaction Severity Reaction Status Date Comments S ource type Reported codeine Assertion Drug Active allergy [facility] t Immunizations Immunization Date Site Status Last Comments Source Given Updated tetanus-diphther Right completed Garriel [facility] ia toxoids 2 Deltoid Results Order Results Value Reference Date Interpretation Comments Source Name Range URINE UA 1.0 0.1 - 1.0 AND Urobilinogen 2014 [facility] STOOL URINE UA Nitrite Positive Negative AND *ABN* 2014 [facility] STOOL (11/11/14 7:35 PM) URINE UA Leuk Est Moderate Negative AND *ABN* 2014 [facility] STOOL (11/11/14 7:35 PM) URINE UA pH 6.0 5.0 - 8.0 AND 2014 [facility] STOOL URINE UA Protein Trace Negative AND *ABN* 2014 [facility] STOOL (11/11/14 7:35 PM) URINE UA Glucose Negative Negative AND (11/11/14 7:35 PM) 2014 [facility] [address] STOOL URINE UA Spec Grav 1.025 <=1.030 AND 2014 [facility] STOOL URINE UA Ketones Negative Negative AND *NA* 2014 [facility] STOOL (11/11/14 7:35 PM) URINE UA Bili Negative Negative AND *NA* 2014 [facility] STOOL (11/11/14 7:35 PM) URINE UA Blood Trace Negative AND *ABN* 2014 [facility] STOOL (11/11/14 7:35 PM) URINE UA Color Yellow Yellow AND *NA* 2014 [facility] (11/11/14 7:35 PM) URINE UA Turbidity Slight Cloudy Clear AND (11/11/14 7:35 PM) 2014 [facility] st STOOL URINE UA Bacteria Moderate None Seen AND /HPF /HPF 2014 [facility] STOOL URINE UA WBC 51-100 /HPF None Seen AND /HPF 2014 [facility] URINE UA RBC 3-5 /HPF 0 - 2 AND 2014 [facility] STOOL URINE Micro? Performed AND (11/11/14 7:35 PM) 2014 [facility] STOOL URINE UA Sq Epi Few /LPF Few /LPF AND 2014 [facility] Pathology Reports No Data Provided for This Section Diagnostic Reports Report Value Date Source Spine lumbar wo Patient Name: OTTO VIGIL 06/27/2016 [facility] contrast MRI : 1980; Age: 35 years y/o Male MR: [id number] Study: Spine lumbar wo contrast MRI 06/27/2016 9: 15 AM CDT Ordering Physician: Loy Tran MD Clinical Indication: M54.5 LOW BACK PAIN; UNDER ANESTHESIA Comparison: None TECHNIQUE: Multiplanar T1, T 2, STIR weighted noncontrast MRI of the lumbar spine is performed on the 1.5 Jessica magnet. FINDINGS: ALIGNMENT AND GENERAL ASSESS MENT: There is normal alignment of the lumbar spine. The bone marrow is normal for the patient's age. There is no acute compression fracture. The anterior and poste rior paraspinal soft tissues are normal. The conus medullaris ends at the T12- L1 level. For the sake of nomenclature , five lumbar vertebrae are assumed for the purpose of this dictation. T12-L1: No acute disc hernia tion, significant spinal or foraminal stenosis. Mild facet arthrosis. L1-L2: No acute disc hernia tion, significant spinal or foraminal stenosis. Mild facet arthrosis. L2-L3: Mild diffuse disc bul ge with superimposed prominent right foraminal disc protrusion encroaching on the neural foramen. No significant spinal stenosis. Mild to moderate facet arthrosis. Please correlate with neurologic symptoms. L3-L4: Prominent right rey inal disc protrusion is present moderately encroaching on the neural foramen. No significant spinal stenosis detected. Moderate facet arthrosis. Please correlate with neurologic symptoms. L4-L5: Mild diffuse disc bul ge and moderate facet arthrosis results in mild spinal stenosis. No significant foraminal stenosis is detected. Please correlate with neurologic symptoms. L5-S1: No acute disc herniat ion or significant spinal stenosis. Moderate left foraminal stenosis from asymmetric lateral disc bulge and marked facet arthrosis.. Please correlate with neurologic symptoms. IMPRESSION: 1. Multilevel degenerative d isc disease and facet arthrosis, most noticeable at L2-L3, L3-L4, L4-L5 and L5/S1 as detailed above. Please correlate with neurologic symptoms. 2. No acute compression fracture or pathologic s ubluxation detected. SL: [id number] Consultation Notes No Data Provided for This Section Discharge Summaries No Data Provided for This Section History and Physicals No Data Provided for This Section Vital Signs Vital Sign Value Date Comments Source Respitory Rate 12 06/27/2016 [facility] Systolic (mm Hg) 140 06[facility]27[facility] Diastolic (mm Hg) 89 06/27/[address] [facility] [address] Respitory Rate 13 06/27/2016 [facility] Systolic (mm Hg) 151 06/27/2016 [place] [facility] Diastolic (mm Hg) 84 06/27/[address] [facility] [address] Systolic (mm Hg) 144 06/27/2016 [facility] Diastolic (mm Hg) 99 06/27/[address] [facility] [address] Respitory Rate 14 06/27/2016 [facility] Heart Rate 61 06/27/2016 [facility] Temperature Oral (F) 98.1 F 06/27/2016 [facility] Height 180.34 cm 06/27/2016 [facility] BMI Calculated 32.46 06/27/2016 [facility] Weight 105.568 06/27/2016 [facility] Systolic (mm Hg) 131 11/12/2014 [place] [facility] Respitory Rate 16 11/12/2014 [facility] Temperature Oral (F) 98.9 F 11/12/2014 [facility] Diastolic (mm Hg) 81 11/12/[address] Heart Rate 81 11/12/2014 [facility] Temperature Oral (F) 98.4 F 11/12/2014 [facility] Weight 79.091 11/12/2014 [facility] BMI Calculated 24.32 11/12/2014 [facility] Heart Rate 82 11/12/2014 [facility] Respitory Rate 18 11/12/2014 [facility] Diastolic (mm Hg) 83 11/12/[address] Systolic (mm Hg) 134 11/12/2014 [place] [facility] Height 180.34 cm 11/12/2014 [facility] Respitory Rate 18 11/12/2014 [facility] Heart Rate 84 11/12/2014 [facility] Diastolic (mm Hg) 83 11/12/[address] [facility] [address] Temperature Oral (F) 97.8 F 11/12/2014 [facility] Systolic (mm Hg) 134 11/12/2014 [facility] BMI Calculated 24.32 11/12/2014 [facility] Weight 79.091 11/12/2014 [facility] Height 180.34 cm 11/12/2014 [facility] Encounters Location Location Encounter Encounter Reason Attending ADM DC Stat us Source Details Type Number For Provider Date Date Visit [facility] [place] [id number] Waldo Romano 11/12 11/12 [facility]2014 [facility] Outpatient [id number] Loy 06/27 06/28 [facility] /2015 [facility] Procedures Procedure Code Date Perfomer Comments Source Operation [id number] [facility] Assessment and Plan No Data Provided for This Section Plan of Care No Data Provided for This Section Social History Social History Date Source Social History TypeResponse 06/27/2016 [facility] Substance Abuse Use: None. Alcohol Never Smoking Status Never smoker; Exposure to Tobacco Smoke None; Cigarette Smoking Last 365 Days No; Reg Smoking Cessation Counseling No Family History No Data Provided for This Section Advance Directives No Data Provided for This Section Functional Status No Data Provided for This Section
--- OUTSIDE RECORDS SUMMARY | 2020-09-14 07:51 | XMS REPORT | Continuity of Care Document ---
:1980 Author Organization [facility] t Address [address] [place] [address] Dr. Ramos [address] [place] [id number] Care Team Providers Name Role Phone Unavailable Unavailable Unavailable Problems This patient has no known problems. Allergies, Adverse Reactions, Alerts This patient has no known allergies or adverse reactions. Medications This patient has no known medications. Procedures This patient has no known procedures. Results This patient has no known results.
--- OUTSIDE RECORDS SUMMARY | 2020-09-14 07:51 | XMS REPORT | Clinical Summary ---
:1980 Author Organization [facility] Address [address] [place] [address] Care Team Providers Name Role Phone Pcp Primary Care Provider Unavailable Allergies Active Allergy Reactions Severity Noted Date Comments Codeine Other (See Comments) 11/06/2017 [facility] Medications Medication Sig Dispensed Refills Start Date End Date Status benztropine Take 1 mg by mouth 2 0 Active (COGENTIN) 1 MG (two) times daily. tablet divalproex Take 500 mg by mouth 0 Active (DEPAKOTE) 500 MG 24 2 (two) times daily hr . tabletIndications: absence epilepsy tamsulosin (FLOMAX) Take 0.4 mg by mouth 0 Active 0.4 mg Cp24 24 hr nightly . capsule baclofen (LIORESAL) Take 10 mg by mouth 0 Active 10 MG tablet 3 (three) times daily. paliperidone Inject 234 mg 0 Act steve palmitate (INVEGA intramuscularly SUSTENNA) 234 mg/1.5 every 28 days. mL Syrg ascorbic acid, Take 1,000 mg by 0 Active vitamin C, (VITAMIN mouth daily. C) 1000 MG tablet cloNIDine HCl Take 0.2 mg by mouth 0 Active (CATAPRES) 0.2 MG 2 (two) times daily. tablet LORazepam (ATIVAN) 1 Take 1 mg by mouth 3 0 Active MG (three) times daily tabletIndications: . anxiety cranberry extract Take 36 mg by mouth 0 Active (ELLURA) 200 mg Cap every morning . cyanocobalamin Take 1,000 mcg by 0 Active (VITAMIN B-12) 1000 mouth daily. MCG tablet ascorbic acid, Take 240 mg by mouth 0 Active vitamin C, (VITAMIN daily. C) 250 MG tablet chlorproMAZINE Take 50 mg by mouth 0 Active (THORAZINE) 50 MG 2 (two) times daily. tablet famotidine (PEPCID) Take 1 tablet (40 mg 20 tablet 0 9 Active 40 MG tablet total) by mouth every night as needed for Heartburn (abdominal pain). docusate sodium Take 1 capsule (100 20 capsule 0 04/29/2019 Active (COLACE) 100 MG mg total) by mouth 2 capsule (two) times daily as needed for Constipation. aluminum & magnesium Take 5 mLs by mouth 355 mL 0 9 Active hydroxide-simethicon every 6 (six) hours e (MAALOX PLUS) as needed for 400-400-40 mg/5 mL Indigestion. suspension Active Problems Problem Noted Date Sepsis 04/06/2019 Pyelonephritis 06/02/2018 Incomplete bladder emptying 11/11/2017 Immunizations Name Administration Dates Next Due Tdap 07/12/2014 Social History Tobacco Use Types Packs/Day Years Used Date Never Smoker Smokeless Tobacco: Never Used Alcohol Use Drinks/Week oz/Week Comments No Sex Assigned at Date Recorded Not on file Last Filed Vital Signs Not on file Plan of Treatment Health Maintenance Due Date Last Done Comments LIPID PANEL 2015 INFLUENZA VACCINE (#1) 2020 Results Not on fileafter 09/14/2019 Insurance Payer Benefit Subscriber ID Effective Phone Address Type Plan / Dates Group BLUE BCBS FED [id number] 1998-Pres [phone] CROSS/BLUE ent [id number] [place] [address] MEDICAID - [facility] [id number] 2014-Pres Med icaid MEDICAID MGD STAR PLAN ent [facility] Advance Directives For more information, please contact: [phone] Type Date Recorded Patient Pre Press Proofer Explanati on Advance Directives 11/06/2017 12:00 AM LETTER OF Clark SANTOS and Living Will Code Status Date Activated Date Inactivated Comments Full Code 04/06/2019 5:55 PM 04/10/2019 1:33 PM This code status was determined by: Patient Full Code 06/02/2018 11:14 PM 06/04/2018 5:13 PM This code status was determined by: Patient
[2020-09-14] MEDS ORDERED: PHENAZOPYRIDINE 100MG TAB PO ONE (08:49)
[2020-09-14] MEDS ORDERED: levoFLOXacin 750 MG TAB ONE (08:50)
[2020-09-14] MEDS ORDERED: TRAMADOL HCL 50 MG TAB ONE (08:51)
[2020-09-14 08:54] LABS: Urine Blood 3+ (NEG); Urine Glucose NEGATIVE (NEG); Urine Protein 3+ (NEG)
--- NOTE | 2020-09-14 09:14 | EDPHYS ---
Physician Documentation [facility] Name: Justyn Escobar Age: 39 yrs Sex: Male : 1980 Arrival Date: 09/14/2020 Time: 07:51 Bed 25 Private MD: ED Physician Owen Fabian HPI: 09/14 18:17 This 39 yrs old Male presents to ER via Ambulatory with complaints of Pain kdr With Urination. 18:17 The patient presents with urinary symptoms, dysuria, urinary frequency. Onset: The kdr symptoms/episode began/occurred suddenly, this morning. Modifying factors: The symptoms are alleviated by nothing, the symptoms are aggravated by urinating. Associated signs and symptoms: The patient has no apparent associated signs or symptoms. Severity of symptoms: At their worst the symptoms were moderate, in the emergency department the symptoms are unchanged. The patient has experienced similar episodes in the past, multiple times. The patient has not recently seen a physician. Historical: - Allergies: 08:02 Codeine; em - PMHx: 08:02 ADD/ADHD; Autism; autistic; Diverticulated bladder; INTERMITTENT EXPLOSIVE DISORDER; em lymphedema (R leg); MHMR; - PSHx: 08:02 right testicle removed; em - Immunization history:: Adult Immunizations. - Social history:: Smoking status: Patient denies any tobacco usage or history of. ROS: 18:17 Constitutional: Negative for fever, chills, and weight loss, Eyes: Negative for injury, kdr pain, redness, and discharge, Neck: Negative for injury, pain, and swelling, Cardiovascular: Negative for chest pain, palpitations, and edema, Respiratory: Negative for shortness of breath, cough, wheezing, and pleuritic chest pain, Abdomen/GI: Negative for abdominal pain, nausea, vomiting, diarrhea, and constipation, Back: Negative for injury and pain, MS/Extremity: Negative for injury and deformity, Skin: Negative for injury, rash, and discoloration, Neuro: Negative for headache, weakness, numbness, tingling, and seizure activity. Psych: Negative for depression, anxiety, suicide ideation, homicidal ideation, and hallucinations, Allergy/Immunology: Negative for hives, rash, and allergies, Endocrine: Negative for neck swelling, polydipsia, polyuria, polyphagia, and marked weight changes, Hematologic/Lymphatic: Negative for swollen nodes, abnormal bleeding, and unusual bruising. 18:17 : Positive for urinary symptoms, burning with urination, difficulty urinating. Exam: 18:17 Constitutional: This is a well developed, well nourished patient who is awake, alert, kdr and in no acute distress. Head/Face: Normocephalic, atraumatic. Eyes: Pupils equal round and reactive to light, extra-ocular motions intact. Lids and lashes normal. Conjunctiva and sclera are non-icteric and not injected. Cornea within normal limits. Periorbital areas with no swelling, redness, or edema. Neck: Trachea midline, no thyromegaly or masses palpated, and no cervical lymphadenopathy. Supple, full range of motion without nuchal rigidity, or vertebral point tenderness. No Meningismus. Chest/axilla: Normal chest wall appearance and motion. Nontender with no deformity. No lesions are appreciated. Cardiovascular: Regular rate and rhythm with a normal S1 and S2. No gallops, murmurs, or rubs. Normal PMI, no JVD. No pulse deficits. Respiratory: Lungs have equal breath sounds bilaterally, clear to auscultation and percussion. No rales, rhonchi or wheezes noted. No increased work of breathing, no retractions or nasal flaring. Abdomen/GI: Soft, non-tender, with normal bowel sounds. No distension or tympany. No guarding or rebound. No evidence of tenderness throughout. Back: No spinal tenderness. No costovertebral tenderness. Full range of motion. Skin: Warm, dry with normal turgor. Normal color with no rashes, no lesions, and no evidence of cellulitis. MS/ Extremity: Pulses equal, no cyanosis. Neurovascular intact. Full, normal range of motion. Neuro: Awake and alert, GCS 15, oriented to person, place, time, and situation. Cranial nerves II-XII grossly intact. Motor strength 5/5 in all extremities. Sensory grossly intact. Cerebellar exam normal. Normal gait. Psych: Awake, alert, with orientation to person, place and time. Behavior, mood, and affect are within normal limits. Vital Signs: 08:00 Pulse 107; Resp 22; Temp 98.6(O); Pulse Ox 100% on R/A; Weight 85.28 kg; Height 5 ft. em 11 in. (180.34 cm); 08:00 BP 128 / 98; em 08:00 Body Mass Index 26.22 (85.28 kg, 180.34 cm) em MDM: 09:14 Patient medically screened. kdr 18:17 Data reviewed: vital signs, nurses notes, lab test result(s). Counseling: I had a kdr detailed discussion with the patient and/or guardian regarding: the historical points, exam findings, and any diagnostic results supporting the discharge/admit diagnosis, lab results, the need for outpatient follow up. 09/14 08:04 Order name: Urine Culture kdr 09/14 08:37 Order name: Urine Dipstick--Ancillary (enter results) em1 09/14 08:04 Order name: Urine Dipstick-Ancillary (obtain specimen); Complete Time: 08:36 kdr Administered Medications: 08:39 Drug: Pyridium 200 mg Route: PO; em 09:27 Follow up: Response: No adverse reaction em 08:39 Drug: traMADol 50 mg Route: PO; em 09:27 Follow up: Response: No adverse reaction; Marked relief of symptoms; Pain is decreased; em RASS: Alert and Calm (0) 08:40 Drug: LevaQUIN 750 mg Route: PO; em 09:28 Follow up: Response: No adverse reaction em Disposition: 09/14/20 09:14 Discharged to Home. Impression: Urinary tract infection, site not specified. - Condition is Stable. - Discharge Instructions: Urinary Tract Infection, Adult, [place]. - Prescriptions for Levaquin 500 mg Oral Tablet - take 1 tablet by ORAL route once daily for 7 days; 7 tablet. Pyridium 200 mg Oral Tablet - take 1 tablet by ORAL route every 8 hours for 3 days; 9 tablet. Tramadol 50 mg Oral Tablet - take 1 tablet by ORAL route every 8 hours as needed; 16 tablet. - Medication Reconciliation Form, Thank You Letter, Antibiotic Education, Prescription Opioid Use form. - Follow up: Private Physician; When: 2 - 3 days; Reason: If symptoms return, Further diagnostic work-up, Recheck today's complaints, Continuance of care, Re-evaluation by your physician. - Problem is new. - Symptoms have improved. Signatures: Dispatcher [employer] Owen Kim MD MD kdr Romaine Dutta RN RN em Corrections: (The following items were deleted from the chart) 09:28 09:14 09/14/2020 09:14 Discharged to Home. Impression: Urinary tract infection, site em not specified. Condition is Stable. Forms are Medication Reconciliation Form, Thank You Letter, Antibiotic Education, Prescription Opioid Use. Follow up: Private Physician; When: 2 - 3 days; Reason: If symptoms return, Further diagnostic work-up, Recheck today's complaints, Continuance of care, Re-evaluation by your physician. Problem is new. Symptoms have improved. kdr
--- NOTE | 2020-09-14 09:14 | ER ---
Nurse's Notes [facility] Name: Justyn Escobar Age: 39 yrs Sex: Male : 1980 Arrival Date: 09/14/2020 Time: 07:51 Bed 25 Private MD: Diagnosis: Urinary tract infection, site not specified Presentation: 09/14 08:00 Chief complaint: Parent and/or Guardian states: reports pain with urination since this em morning, reports frequent UTI's, denies fever or N/V. Coronavirus screen: Client denies travel out of the [place] in the last 14 days. Ebola Screen: Patient negative for fever greater than or equal to 101.5 degrees Fahrenheit, and additional compatible Ebola Virus Disease symptoms Patient denies exposure to infectious person. Patient denies travel to an Ebola-affected area in the 21 days before illness onset. No symptoms or risks identified at this time. Initial Sepsis Screen: Does the patient meet any 2 criteria? HR > 90 bpm. No. Patient's initial sepsis screen is negative. Does the patient have a suspected source of infection? Yes: Dysuria/Frequency/Urgency/UTI. Risk Assessment: Do you want to hurt yourself or someone else? Patient reports no desire to harm self or others. Onset of symptoms was September 14, 2020. 08:00 Method Of Arrival: Ambulatory em 08:00 Acuity: ENRIQUE 3 em Historical: - Allergies: 08:02 Codeine; em - PMHx: 08:02 ADD/ADHD; Autism; autistic; Diverticulated bladder; INTERMITTENT EXPLOSIVE DISORDER; em lymphedema (R leg); MR; - PSHx: 08:02 right testicle removed; em - Immunization history:: Adult Immunizations. - Social history:: Smoking status: Patient denies any tobacco usage or history of. Screenin:53 Abuse screen: Denies threats or abuse. Nutritional screening: No deficits noted. em Tuberculosis screening: No symptoms or risk factors identified. Fall Risk None identified. Assessment: 07:55 General: Appears in no apparent distress. uncomfortable, Behavior is calm, cooperative, em Denies fever. Pain: Complains of pain in pelvis. Neuro: Level of Consciousness is awake, alert, obeys commands, Oriented to person, place, time, situation. Cardiovascular: Capillary refill < 3 seconds Patient's skin is warm and dry. Respiratory: Airway is patent Respiratory effort is even, unlabored, Respiratory pattern is regular, symmetrical. GI: Patient currently denies nausea, vomiting. : Urine is cloudy, Reports burning with urination. Derm: Skin is intact, is healthy with good turgor, Skin is pink, warm \T\ dry. Musculoskeletal: Capillary refill < 3 seconds, Range of motion: intact in all extremities. Vital Signs: 08:00 Pulse 107; Resp 22; Temp 98.6(O); Pulse Ox 100% on R/A; Weight 85.28 kg; Height 5 ft. em 11 in. (180.34 cm); 08:00 BP 128 / 98; em 08:00 Body Mass Index 26.22 (85.28 kg, 180.34 cm) em ED Course: 07:51 Patient arrived in ED. as 07:53 Romaine Dutta, RN is Primary Nurse. em 07:53 Patient has correct armband on for positive identification. Bed in low position. Call em light in reach. Adult w/ patient. 07:58 Owen Fabian MD is Attending Physician. kdr 08:01 Triage completed. em 08:02 Arm band placed on. em 08:30 Urine collected: clean catch specimen, cloudy. em 09:27 No provider procedures requiring assistance completed. Patient did not have IV access em during this emergency room visit. Administered Medications: 08:39 Drug: Pyridium 200 mg Route: PO; em 09:27 Follow up: Response: No adverse reaction em 08:39 Drug: traMADol 50 mg Route: PO; em 09:27 Follow up: Response: No adverse reaction; Marked relief of symptoms; Pain is decreased; em RASS: Alert and Calm (0) 08:40 Drug: LevaQUIN 750 mg Route: PO; em 09:28 Follow up: Response: No adverse reaction em Outcome: 09:14 Discharge ordered by . kdr 09:27 Discharged to home ambulatory, with family. em 09:27 Condition: good 09:27 Discharge instructions given to patient, family, Instructed on discharge instructions, follow up and referral plans. medication usage, Demonstrated understanding of instructions, follow-up care, medications, Prescriptions given X 3. 09:28 Patient left the ED. em Addendum: 09/18/2020 09:28 Addendum: Culture Results: Positive urine culture. Bacteria is resistant to, has s v intermediate sensitivity, or is not tested against prescribed antibiotics. Report given to WAYNE for further evaluation and then to employee relation manager for follow up with patient. Phone call Attempt #1 phone on file [phone] is his father's #. Asked his father to have Justyn return our phone call. Signatures: Anny Potter RN RN sv Rittger, Kevin, MD MD kdr Munoz, Edgar, RN RN em Martinez, Amelia as
[2020-09-19 02:00] VITALS: BP 128/98; TEMP 98.6; O2SAT 100
== END 2020-09-14 09:28 | disposition home or self-care (01) ==
LOC: ER 07:49
DX: N39.0 Urinary tract infection, site not specified (principal); Z88.5 Allergy status to narcotic agent
CPT/HCPCS: 81003; 87077; 87086; 87088; 87186; 99283